=== PATIENT | female | born 1990 | race Caucasian/White ===

== ENCOUNTER → 2016-03-13 04:04 | Emergency (ER) | payer OTHER ==
[~2016-03-13 04:04] MED LIST: Ketorolac INJ* 60 MG/2 ML VIAL IM ONE; oxyCODONE/Acetamin 5/325 MG* TAB PO ONE
[2016-03-13 04:13] VITALS: BP 126/68
--- NOTE | 2016-03-13 04:55 | ED ---
Conrelius Glynn Anna, scribed for Rene Weems MD on 03/13/16 at 0413 . Throat Pain/Nasal Congestion - HPI Summary HPI Summary: Patient is a 25 y/o female coming to [facility] presenting with dental pain that began two months ago. She has an infection in her jaw from her wisdom teeth. The pain radiates to her ears and teeth. The pain is worse tonight. Denies fever. She has been taking amoxicillin for three rounds of treatment, the last two months. She is scheduled to return to her dentist on 04/05. She has tried Tylenol and ibuprofen, but it has not alleviated the pain. - History of Current Complaint Hx Obtained From: Patient - Allergies/Home Medications Allergies/Adverse Reactions: Allergies Allergy/AdvReac Type Severity Reaction Status Date / Time No Known Allergies Allergy Verified 04/16/15 18:19 PMH/Surg Hx/FS Hx/Imm Hx Previously Healthy: Yes Respiratory History: Reports: Hx Asthma - Immunization History Date of Tetanus Vaccine: UP TO DATE Date of Influenza Vaccine: NONE Infectious Disease History: Denies: Hx Clostridium Difficile, Hx Hepatitis, Hx Human Immunodeficiency Virus (HIV), Hx of Known/Suspected MRSA, Hx Shingles, Hx Tuberculosis, Hx Known/ Suspected VRE, Hx Known/Suspected VRSA, History Other Infectious Disease - Family History Known Family History: Negative: Cardiac Disease, Diabetes - Social History Lives: With Family Alcohol Use: None Substance Use Type: Reports: None Smoking Status (MU): Light Every Day Tobacco Smoker Type: Cigarettes Amount Used/How Often: 6cigs/day Have You Smoked in the Last Year: Yes Review of Systems Negative: Fever Positive: Dental Pain, Ear Ache Positive: Arthralgia - jaw All Other Systems Reviewed And Are Negative: Yes Physical Exam Triage Information Reviewed: Yes Vital Signs On Initial Exam: Initial Vitals Temp Pulse Resp BP Pulse Ox 98.9 F 75 12 126/68 100 03/13/16 04:09 03/13/16 04:09 03/13/16 04:09 03/13/16 04:09 03/13/16 04:09 Vital Signs Reviewed: Yes Appearance: Positive: Well-Appearing Skin: Positive: Warm Head/Face: Positive: Normal Head/Face Inspection Eyes: Positive: JUSTA Dental: Positive: Percussion Tenderness @ Neck: Positive: Supple Respiratory/Lung Sounds: Positive: Breath Sounds Present Musculoskeletal: Positive: Strength/ROM Intact Neurological: Positive: Sensory/Motor Intact, Alert, Oriented to Person Place, Time Psychiatric: Positive: Affect/Mood Appropriate Diagnostics - Vital Signs Vital Signs Temp Pulse Resp BP Pulse Ox 03/13/16 04:09 98.9 F 75 12 126/68 100 - Laboratory Lab Statement: Any lab studies that have been ordered have been reviewed, and results considered in the medical decision making process. Re-Evaluation - Re-Evaluation First Eval Re-Evaluation Time: 04:50 Change: Improved Comment: Patient's pain has alleviated somewhat following the Toradol and Percocet. Patient agrees with plan of care. EENT Course/Dx - Course Assessment/Plan: Patient is a 25 y/o female coming to [facility] presenting with dental pain that began two months ago. She has an infection in her jaw from her wisdom teeth. The pain radiates to her ears and teeth. The pain is worse tonight. Denies fever. Patient treated with Toradol and Percocet. Patient will be discharged to follow up with her dentist. Patient is agreeable with this plan. - Diagnoses Provider Diagnoses: Pain, dental Discharge - Discharge Plan Condition: Improved Disposition: HOME Patient Education Materials: Toothache (ED) Referrals: [facility] [Outside] Additional Instructions: Follow up with your dentist in 2-3 days. Return to ED for new or worsening symptoms. The documentation as recorded by the Cornelius tovar Anna accurately reflects the service I personally performed and the decisions made by me, Rene Weems MD.
== END | disposition home or self-care (01) ==
LOC: ED 04:04
DX: K08.89 Other specified disorders of teeth and supporting structures (principal); F17.210 Nicotine dependence, cigarettes, uncomplicated
CPT/HCPCS: 96372; 99282; A9270-GY; J1885

== ENCOUNTER 2016-03-16 12:41 | Emergency (ER) | payer OTHER ==
[2016-03-16 12:47] VITALS: BP 132/63
--- NOTE | 2016-03-16 13:21 | ED ---
Throat Pain/Nasal Congestion - HPI Summary HPI Summary: Patient presents with left upper tooth pain for 2 months. She is followed by her dentist and is on her third round of Amoxicillin. She has an appointment on Apr 05, 2016. She came to this ED two nights ago and was told to try to get an earlier appointment with her dentist. Her pain is now in her left ear and when turning her head to the right. She denies drainage, fevers or chills. - History of Current Complaint Chief Complaint: EDDentalPain Time Seen by Provider: 03/16/16 12:59 Hx Obtained From: Patient, Family/Pulverizing And Sifting Operator Onset/Duration: Gradual Onset Severity: Severe Associated Signs And Symptoms: Positive: Negative Cough: None - Epiglottits Risk Factors Epiglottis Risk Factors: Negative - Allergies/Home Medications Allergies/Adverse Reactions: Allergies Allergy/AdvReac Type Severity Reaction Status Date / Time No Known Allergies Allergy Verified 03/16/16 12:47 PMH/Surg Hx/FS Hx/Imm Hx Respiratory History: Reports: Hx Asthma - Immunization History Date of Tetanus Vaccine: UP TO DATE Date of Influenza Vaccine: NONE Infectious Disease History: No Infectious Disease History: Denies: Hx Clostridium Difficile, Hx Hepatitis, Hx Human Immunodeficiency Virus (HIV), Hx of Known/Suspected MRSA, Hx Shingles, Hx Tuberculosis, Hx Known/ Suspected VRE, Hx Known/Suspected VRSA, History Other Infectious Disease, Traveled Outside the in Last 30 Days - Family History Known Family History: Positive: None Negative: Cardiac Disease, Diabetes - Social History Occupation: Employed Full-time Lives: With Family Alcohol Use: None Substance Use Type: Reports: None Smoking Status (MU): Light Every Day Tobacco Smoker Type: Cigarettes Amount Used/How Often: 6cigs/day Have You Smoked in the Last Year: Yes Cessation Counseling: Patient Advised to Stop Review of Systems Negative: Fever, Chills Positive: Dental Pain, Ear Ache Negative: Headache All Other Systems Reviewed And Are Negative: Yes Physical Exam Triage Information Reviewed: Yes Vital Signs On Initial Exam: Initial Vitals Temp Pulse Resp BP Pulse Ox 97.8 F 81 14 132/63 100 03/16/16 12:42 03/16/16 12:42 03/16/16 12:42 03/16/16 12:42 03/16/16 12:42 Vital Signs Reviewed: Yes Appearance: Positive: Well-Appearing, Well-Nourished, Pain Distress Skin: Positive: Warm, Skin Color Reflects Adequate Perfusion, Dry, Soft Head/Face: Positive: Normal Head/Face Inspection Eyes: Positive: EOMI, JUSTA, Conjunctiva Clear ENT: Positive: Hearing grossly normal, Pharyngeal erythema, TMs normal, Dental tenderness - left upper molars and wisdom teeth. Negative: Tonsillar swelling Dental: Positive: Percussion Tenderness @, Cervical Lymphadenopathy - left cervical chain. Negative: Dental Fracture @ Neck: Positive: Supple, Tenderness @ - left cervical chain Respiratory/Lung Sounds: Positive: Clear to Auscultation, Breath Sounds Present Cardiovascular: Positive: RRR Musculoskeletal: Negative: Edema Left, Edema Right Neurological: Positive: Sensory/Motor Intact, Alert, Oriented to Person Place, Time, Normal Gait Psychiatric: Positive: Affect/Mood Appropriate AVPU Assessment: Alert Diagnostics - Vital Signs Vital Signs Temp Pulse Resp BP Pulse Ox 03/16/16 12:42 97.8 F 81 14 132/63 100 - Laboratory Result Diagrams: 03/16/16 13:37 Lab Statement: Any lab studies that have been ordered have been reviewed, and results considered in the medical decision making process. - CT No standard instances CT Interpretation: No Acute Changes CT Interpretation Completed By: Radiologist EENT Course/Dx - Course Course Of Treatment: Patient's CT was negative for abscess. She will be changed to clindamycin to see if this will have better coverage and follow-up with her dentist. - Differential Diagnoses Differential Diagnoses: Dental Abscess, Dental Caries, Fractured Tooth, Irineo' s Angina, Mastoiditis, Odontogenic Pain, Periodontic Abscess, Periodontic Disease, Post-Extraction Pain - Diagnoses Provider Diagnoses: Toothache Discharge - Discharge Plan Condition: Stable Disposition: HOME Prescriptions: Clindamycin Cap(NF) [Cleocin 300 mg Cap(NF)] 300 mg PO Q6H #39 cap Patient Education Materials: Toothache (ED) Additional Instructions: Please take the antibiotics as prescribed until they are completely gone. Use 600mg of ibuprofen three times daily with meals for the next 5-7 days to decrease pain and swelling. Follow-up with your dentist as scheduled. Return to the emergency department if your symptoms worsen.
[2016-03-16] MEDS ORDERED: Ketorolac INJ* 30 MG/ML 1 ML VIAL IV ONE (13:23)
[2016-03-16 14:01] LABS: ALT 19 U/L (7-52); AST 19 U/L (13-39); Alkaline Phosphatase 100 U/L (34-104); Anion Gap 3 mmol/L (2-11); BUN/Creatinine Ratio 15.5 (8-20); Blood Urea Nitrogen 13 mg/dL (6-24); C Reactive Protein < 1.00 mg/L (< 5.00); CO2 Carbon Dioxide 29 mmol/L (22-32); Chloride 104 mmol/L (101-111); EGFR African American 107.1 (>60); EGFR Non-African American 83.3 (>60); Globulin 2.9 g/dL (2-4); Glucose 92 mg/dL (70-100); Potassium 3.9 mmol/L (3.5-5.0); Sodium 136 mmol/L (133-145); Total Protein 7.9 g/dL (6.4-8.9)
[2016-03-16] MEDS ORDERED: Iohexol 300* (CONTRAST) 10 ML SDV IV ONE (14:33)
--- NOTE | 2016-03-16 15:16 | RAD ---
HISTORY: Left tooth pain, ear pain COMPARISONS: None relevant TECHNIQUE: Multiple contiguous axial CT scans were obtained of the neck after the administration of nonionic intravenous contrast, with coronal and sagittal multiplanar reformations. FINDINGS: The study is limited by patient motion artifact. BRAIN AND ORBITS: The visualized brain and orbits are normal. PARANASAL SINUSES: There is mucosal thickening of the left maxillary sinus. SALIVARY GLANDS: The parotid glands, submandibular glands, sublingual glands are normal. NASAL CAVITY/NASOPHARYNX: The nasal cavity and nasopharynx are normal. ORAL CAVITY/OROPHARYNX: The oral cavity is obscured by streak artifact from dental amalgam. The visualized oral cavity and oropharynx are unremarkable. LARYNGEAL APPARATUS/HYPOPHARYNX: The laryngeal apparatus and hypopharynx are normal. UPPER AIRWAY/UPPER ESOPHAGUS: The visualized upper airway and esophagus are normal. LUNG APICES: The lung apices are clear. THYROID GLAND: The thyroid gland is normal. LYMPH NODES: There is no lymphadenopathy by size criteria. VASCULATURE: The vasculature is unremarkable. BONES AND SOFT TISSUES: No bone or soft tissue abnormalities are noted. OTHER: None. IMPRESSION: LIMITED STUDY. UNREMARKABLE CT OF THE NECK, WITHOUT FREE OR LOCULATED FLUID COLLECTION OR INFLAMMATORY CHANGE
[2016-03-16] MEDS ORDERED: Clindamycin CAP* 150 MG PO ONE (15:19)
== END 2016-03-16 15:28 | disposition home or self-care (01) ==
LOC: ED 12:41
DX: K08.89 Other specified disorders of teeth and supporting structures (principal); F17.210 Nicotine dependence, cigarettes, uncomplicated
CPT/HCPCS: 36415; 70491; 80053; 86140; 96374; 99282; A9270-GY; J1885; Q9967

== ENCOUNTER 2016-03-31 04:12 | Emergency (ER) | payer OTHER ==
[2016-03-31 04:22] VITALS: BP 130/84
[2016-03-31] MEDS ORDERED: Amoxicillin PO (*) 250 MG CAP PO ONE (04:31)
[2016-03-31] MEDS ORDERED: oxyCODONE/Acetamin 5/325 MG* TAB PO ONE (04:31)
--- NOTE | 2016-03-31 06:26 | ED ---
Alberto Glynn Claudia, scribed for Macho Anne on 03/31/16 at 0429 . Throat Pain/Nasal Congestion - HPI Summary HPI Summary: 25 YEAR OLD FEMALE PRESENTS TO THE ED WITH DENTAL PAIN. PT NOTES SHE HAS BEEN HAVING THIS PAIN FOR MONTHS BUT IT HAS GOTTEN WORSE IN THE PAST FEW DAYS. PT IS SUPPOSE TO HAVE THE TOOTH REMOVED ON MONDAY BUT THE PAIN WORSENED SO MUCH TONIGHT SHE WAS UNABLE TO SLEEP. PT NOTES SHE HAS BEEN ON ANTIBIOTICS FOR WEEK WITH NO ALLEVIATION OF HER SX. - History of Current Complaint Chief Complaint: EDDentalPain Time Seen by Provider: 03/31/16 04:25 Hx Obtained From: Patient Onset/Duration: Gradual Onset, Lasting Weeks, Still Present, Worse Since - today - Allergies/Home Medications Allergies/Adverse Reactions: Allergies Allergy/AdvReac Type Severity Reaction Status Date / Time No Known Allergies Allergy Verified 03/16/16 12:47 PMH/Surg Hx/FS Hx/Imm Hx Previously Healthy: Yes Endocrine/Hematology History: Denies: Hx Diabetes Respiratory History: Reports: Hx Asthma - Immunization History Date of Tetanus Vaccine: UP TO DATE Date of Influenza Vaccine: NONE Infectious Disease History: No Infectious Disease History: Denies: Hx Clostridium Difficile, Hx Hepatitis, Hx Human Immunodeficiency Virus (HIV), Hx of Known/Suspected MRSA, Hx Shingles, Hx Tuberculosis, Hx Known/ Suspected VRE, Hx Known/Suspected VRSA, History Other Infectious Disease, Traveled Outside the [place] in Last 30 Days - Family History Known Family History: Positive: None Negative: Cardiac Disease, Diabetes - Social History Lives: With Family Alcohol Use: None Substance Use Type: Reports: None Smoking Status (MU): Light Every Day Tobacco Smoker Type: Cigarettes Amount Used/How Often: 6cigs/day Have You Smoked in the Last Year: Yes Review of Systems Constitutional: Negative Negative: Fever Eyes: Negative Positive: Dental Pain, Ear Ache - left sided Cardiovascular: Negative Respiratory: Negative Genitourinary: Negative Musculoskeletal: Negative Skin: Negative Neurological: Negative Psychological: Normal All Other Systems Reviewed And Are Negative: Yes Physical Exam Triage Information Reviewed: Yes Vital Signs On Initial Exam: Initial Vitals Temp Pulse Resp BP Pulse Ox 98.1 F 80 22 130/84 100 03/31/16 04:19 03/31/16 04:19 03/31/16 04:19 03/31/16 04:19 03/31/16 04:19 Vital Signs Reviewed: Yes Appearance: Positive: Well-Appearing, No Pain Distress Skin: Positive: Warm, Skin Color Reflects Adequate Perfusion, Dry Head/Face: Positive: Normal Head/Face Inspection Eyes: Positive: EOMI, JUSTA ENT: Positive: Other - TENDERNESS OVER TEETH 15,16,17,18 AND REDNESS OF THE EXTERNAL AUDIOTRY CANAL Neck: Positive: Supple, Nontender Respiratory/Lung Sounds: Positive: Clear to Auscultation, Breath Sounds Present Cardiovascular: Positive: RRR, Pulses are Symmetrical in both Upper and Lower Extremities Abdomen Description: Positive: Nontender, Soft Diagnostics - Vital Signs Vital Signs Temp Pulse Resp BP Pulse Ox 03/31/16 04:19 98.1 F 80 22 130/84 100 - Laboratory Lab Statement: Any lab studies that have been ordered have been reviewed, and results considered in the medical decision making process. EENT Course/Dx - Course Assessment/Plan: PT IT AGREEABLE WITH THE PLAN TO BE D/C HOME WITH ANTIBIOTICS AND PAIN RX UNTIL SHE IS [place] JESUS TO SEE THE DENTIST ON MONDAY FOR HER TOOTH EXTRACTION. - Diagnoses Provider Diagnoses: Tooth pain, Otitis media Discharge - Discharge Plan Condition: Stable Disposition: HOME Prescriptions: Amoxicillin CAP* 875 mg PO Q12H #20 cap oxyCODONE/Acetamin 5/325 MG* [Percocet 5/325 TAB*] 1 tab PO Q8H PRN #10 tab MDD 3 PRN Reason: Pain Patient Education Materials: Otitis Media (ED), Toothache (ED) Additional Instructions: FOLLOW UP WITH DENTIST. The documentation as recorded by the Alberto tovar Claudia accurately reflects the service I personally performed and the decisions made by Omid willis Emmanuel.
== END 2016-03-31 04:48 | disposition home or self-care (01) ==
LOC: ED 04:12
DX: K08.89 Other specified disorders of teeth and supporting structures (principal); H66.92 Otitis media, unspecified, left ear; F17.210 Nicotine dependence, cigarettes, uncomplicated
CPT/HCPCS: 99282; A9270-GY

== ENCOUNTER 2016-10-02 13:21 | Emergency (ER) | payer OTHER ==
[2016-10-02 13:32] VITALS: BP 131/69
[2016-10-02] MEDS ORDERED: Ibuprofen TAB* 600 MG PO ONE ×2 (14:14→14:23)
--- NOTE | 2016-10-02 14:17 | RAD ---
HISTORY: Right knee injury COMPARISONS: None VIEWS: 4, Frontal, lateral, axial, and oblique views of the right knee FINDINGS: BONE DENSITY: Normal. BONES: There is no displaced fracture. JOINTS: There is no arthropathy. ALIGNMENT: There is no dislocation. SOFT TISSUES: Unremarkable. OTHER FINDINGS: None. IMPRESSION: NO ACUTE OSSEOUS INJURY. IF SYMPTOMS PERSIST, RECOMMEND REPEAT IMAGING.
--- NOTE | 2016-10-02 14:25 | UC ---
Inocente Glynn Angela, scribed for Sterling Abebe MD on 10/02/16 at 1403 . Lower Extremity/Ankle HPI - HPI Summary HPI Summary: This pt is a 25 y/o female presenting to [facility] c/o right knee pain since yesterday. Pt reports she has an old knee injury to her right knee x10 years. She notes she was at the park with her kids yesterday and felt a pop on her right knee. Pt describes her pain as if her foot "was asleep" and the pain shoots down her leg. She rates her pain 7-8 out of 10 in severity. Her pain is aggravated by bending her right knee. Pt reports that if she bends her knee she feels unstable on her feet, but is able to wear weight. She took ibuprofen yesterday with no relief, last dose was yesterday. Pt states her knee is uncomfortable in the winter with the cold. She denies any other injuries to the knee, surgeries to her knee, ankle pain, foot pain, fever. - History of Current Complaint Chief Complaint: UCLowerExtremity Stated Complaint: KNEE INJURY Time Seen by Provider: 10/02/16 13:56 Hx Obtained From: Patient Hx Last Menstrual Period: 09/26/16 Onset/Duration: Gradual Onset Pain Intensity: 7 Pain Scale Used: 0-10 Numeric Aggravating Factor(s): Ambulation, Other - bending the knee Alleviating Factor(s): Nothing Able to Bear Weight: Yes Related History: Other - prior right knee injury 10 years ago - Allergies/Home Medications Allergies/Adverse Reactions: Allergies Allergy/AdvReac Type Severity Reaction Status Date / Time Aspirin Allergy Unknown Verified 10/02/16 13:33 Reaction Details PMH/Surg Hx/FS Hx/Imm Hx Other Endocrine History: DENIES: diabetes Other Cardiovascular History: DENIES: HTN Respiratory History: Asthma - Surgical History Surgical History: None - Family History Known Family History: Positive: None Negative: Cardiac Disease, Diabetes - Social History Alcohol Use: Rare Substance Use Type: None Smoking Status (MU): Light Every Day Tobacco Smoker Type: Cigarettes Amount Used/How Often: 6cigs/day Have You Smoked in the Last Year: Yes Household Exposure Type: Cigarettes Review of Systems Constitutional: Negative Skin: Negative Eyes: Negative ENT: Negative Respiratory: Negative Motor: Decreased ROM - of right knee, unable to bend knee secondary to pain Musculoskeletal: Other: - right knee pain Neurological: Negative All Other Systems Reviewed And Are Negative: Yes Physical Exam Triage Information Reviewed: Yes Vital Signs: Initial Vital Signs Temp 98.1 F 10/02/16 13:28 Pulse 107 10/02/16 13:28 Resp 18 10/02/16 13:28 BP 131/69 10/02/16 13:28 Pulse Ox 98 10/02/16 13:28 Vital Signs Reviewed: Yes - Additional Comments General: well-appearing, no pain distress Skin: warm, color reflects adequate perfusion, dry Head: normal Eyes: EOMI, JUSTA ENT: normal Neck: supple, nontender Respiratory: CTA, breath sounds present Cardiovascular: RRR Musculoskeletal: normal, strength/ROM intact. RLE: right knee has effusion. There is tenderness with movement of patella, palpation of the medial collateral ligaments, and palpation of the popliteal. Pt declines examination of laxity secondary to pain with flexion of the knee. Neurological: normal, sensory/motor intact, A&O x3 Psychological: affect/mood appropriate Diagnostics - Radiology Right Knee XR Xray Interpretation: No Acute Changes - IMPRESSION: No acute osseous injury. If symptoms persist, recommend repeat imaging. ED physician has reviewed this radiology report and agrees. Radiology Interpretation Completed By: Radiologist Lower Extremity Course/Dx - Course Course Of Treatment: This pt is a 25 y/o female presenting to [facility] c/o right knee pain since yesterday. Pt reports she has an old knee injury to her right knee x10 years. She notes she was at the park with her kids yesterday and felt a pop on her right knee. Pt describes her pain as if her foot "was asleep" and the pain shoots down her leg. She rates her pain 7-8 out of 10 in severity. Her pain is aggravated by bending her right knee. Pt reports that if she bends her knee she feels unstable on her feet, but is able to wear weight. She took ibuprofen yesterday with no relief, last dose was yesterday. Pt states her knee is uncomfortable in the winter with the cold. She denies any other injuries to the knee, surgeries to her knee, ankle pain, foot pain, fever. XR shows no acute osseous injury. If symptoms persist, recommend repeat imaging. ED physician has reviewed this radiology report and agrees.The right knee has effusion. On exam, there is tenderness with movement of the patella, palpation of the medial collateral ligaments, and palpation of the popliteal. Pt declines examination of laxity secondary to pain with flexion of the knee. Elevated BP noted and advised to follow up with PCP. Medications reviewed. KNEE IMMOBILIZER GIVEN. F/U WITH SPORTS MED. MEDICATIONS REVIEWED. - Differential Dx/Diagnosis Provider Diagnoses: SWOLLEN RIGHT KNEE INTERNAL DERANGEMENT Discharge - Discharge Plan Condition: Stable Disposition: HOME Prescriptions: HYDROcodone/ACETAMIN 5-325 MG* [[place] 5-325 TAB*] 1 tab PO Q4H PRN #20 tab MDD 6 PRN Reason: Pain Patient Education Materials: Swollen Knee Joint (ED), Knee Immobilizer (ED) Referrals: [facility] [Outside] Additional Instructions: FOLLOW UP WITH YOUR DOCTOR. GET RECHECKED FOR ANY WORSENING OF YOUR CONDITION OR QUESTIONS OR CONCERNS. The documentation as recorded by the Inocente tovar Angela accurately reflects the service I personally performed and the decisions made by me, Sterling Abebe MD.
== END 2016-10-02 14:33 | disposition home or self-care (01) ==
LOC: UCEAST 13:21
DX: M23.92 Unspecified internal derangement of left knee (principal); J45.909 Unspecified asthma, uncomplicated; Z88.6 Allergy status to analgesic agent; F17.210 Nicotine dependence, cigarettes, uncomplicated
CPT/HCPCS: 99213; A9270-GY; G0463

== ENCOUNTER 2017-02-28 21:20 | Emergency (ER) | payer OTHER ==
--- NOTE | 2017-03-01 00:06 | ED ---
GI/ HPI - HPI Summary HPI Summary: 26 female presents to ED with complaints of right flank pain, dysuria, feeling like she is not finished urinating (difficulty), and white colored discharge that has been ongoing for the past week. Patient states her R sided flank pain began yesterday and worsened today. Denies abdominal pain and radiation of pain. No nausea, vomiting or fever/chills. Denies any other symptoms. No PMHx. Has nexplonon. No other medications. Nothing makes pain better, urination makes symptoms worse. No concern for STDs, patient is sexually active with fiance. Admits to some dyspareunia that has been ongoing intermittently for years. - History of Current Complaint Chief Complaint: EDFlankPain Time Seen by Provider: 03/01/17 00:05 Stated Complaint: RT FLANK PAIN,DIFFICULTY URINATING Hx Obtained From: Patient Hx Last Menstrual Period: 09/26/16 Onset/Duration: Started Days Ago, Still Present, Worse Since Timing: Constant Severity: Moderate Current Severity: Moderate Pain Intensity: 5 Location of Pain: Flank - right Pain Characteristics: Sharp, Dull, Aching Associated Signs and Symptoms: Positive: Dysuria, Flank Pain - r, UTI Symptoms Additional Signs & Symptoms: Positive: Vaginal Discharge - white in color, Oral Contraceptives Compliant - nexplonon Aggravating Factor(s): Urination Alleviating Factor(s): Nothing - Allergy/Home Medications Allergies/Adverse Reactions: Allergies Allergy/AdvReac Type Severity Reaction Status Date / Time Aspirin Allergy Unknown Verified 10/02/16 13:33 Reaction Details PMH/Surg Hx/FS Hx/Imm Hx Endocrine/Hematology History: Denies: Hx Diabetes Respiratory History: Reports: Hx Asthma - Surgical History Surgery Procedure, Year, and Place: none - Immunization History Date of Tetanus Vaccine: UP TO DATE Date of Influenza Vaccine: NONE Immunizations Up to Date: Yes Infectious Disease History: No Infectious Disease History: Denies: Hx Clostridium Difficile, Hx Hepatitis, Hx Human Immunodeficiency Virus (HIV), Hx of Known/Suspected MRSA, Hx Shingles, Hx Tuberculosis, Hx Known/ Suspected VRE, Hx Known/Suspected VRSA, History Other Infectious Disease, Traveled Outside the [place] in Last 30 Days - Family History Known Family History: Positive: None Negative: Cardiac Disease, Diabetes - Social History Alcohol Use: Rare Substance Use Type: Reports: None Smoking Status (MU): Light Every Day Tobacco Smoker Type: Cigarettes Amount Used/How Often: 6cigs/day Have You Smoked in the Last Year: Yes Review of Systems Constitutional: Negative Cardiovascular: Negative Respiratory: Negative Gastrointestinal: Negative Positive: see HPI, burning, dysuria, discharge, flank pain - r Neurological: Negative All Other Systems Reviewed And Are Negative: Yes Physical Exam Triage Information Reviewed: Yes Vital Signs On Initial Exam: Initial Vitals Temp Pulse Resp BP Pulse Ox 98.2 F 83 16 134/75 98 02/28/17 21:24 02/28/17 21:24 02/28/17 21:24 02/28/17 21:24 02/28/17 21:24 Vital Signs Reviewed: Yes Appearance: Positive: Well-Appearing, No Pain Distress, Well-Nourished Skin: Positive: Warm, Skin Color Reflects Adequate Perfusion, Dry. Negative: Cold, Numb, Cyanosis @, Pale, Erythema @ Head/Face: Positive: Normal Head/Face Inspection ENT: Positive: Pharynx normal Neck: Positive: Supple, Nontender Respiratory/Lung Sounds: Positive: Clear to Auscultation, Breath Sounds Present. Negative: Rales, Rhonchi, Wheezes Cardiovascular: Positive: Normal, RRR, Pulses are Symmetrical in both Upper and Lower Extremities. Negative: Murmur, Rub Abdomen Description: Positive: Nontender, No Organomegaly, Soft, CVA Tenderness (R) - some tenderness on abdomen mid right side. Negative: Bruit, CVA Tenderness (L), Distended, Guarding, McBurney's Point Tenderness Bowel Sounds: Positive: Present Musculoskeletal: Positive: Normal, Strength/ROM Intact Neurological: Positive: Normal, Sensory/Motor Intact, Alert, Oriented to Person Place, Time Diagnostics - Vital Signs Vital Signs Temp Pulse Resp BP Pulse Ox 02/28/17 23:41 97.8 F 71 20 114/61 100 02/28/17 21:24 98.2 F 83 16 134/75 98 - Laboratory Result Diagrams: 03/01/17 00:53 03/01/17 00:53 Lab Statement: Any lab studies that have been ordered have been reviewed, and results considered in the medical decision making process. - CT abd/pelvis CT Interpretation: No Acute Changes - no definite acute pathology, moderate diffuse solid stool, no renal calculi or hydronephrosis CT Interpretation Completed By: Radiologist - and myself Re-Evaluation - Re-Evaluation First Eval Re-Evaluation Time: 01:34 Change: Improved - had significant relief from toradol GIGU Course/Dx - Course Course Of Treatment: given pain medication. urine, labs, vaginal cultures and Ct abd/pelvis obtained. normal vitals and PE other than R CVA tenderness and described pelvic exam as noted above. had relief from toradol. labs and urine completely negative. ct negative. pelvic exam revealed findings of BV. will treat with flagyl. possible candidiasis infection as well, will treat with one time dose of diflucan. continue falgyl and ibuprofen at home. pending vaginal culture results will alter treatment if results alex necessary. patient denied STD concerns/hx. no other concerns at this time. follow up with pcp/obgyn. aware of worsening signs and symptoms to watch out for. refrain from sexual intercourse until treatment is complete and culture results obtained. continue ibuprofen for pain and heating pad. - Diagnoses Differential Diagnoses - Female: Candidiasis, STD, Vaginitis Provider Diagnoses: Bacterial vaginosis, Vaginal discharge, Vaginal candidiasis Discharge - Discharge Plan Condition: Stable Disposition: HOME Prescriptions: Metronidazole [Flagyl 500 MG TAB] 500 mg PO BID #13 tab Patient Education Materials: Bacterial Vaginosis (ED), Yeast Infection (ED) Referrals: Michel Deutsch MD [Primary Care Provider] - Additional Instructions: Take prescribed medication as directed. Ibuprofen for pain and discomfort. Increase fluid intake. Apply heating pad to any pain/discomfort as this may help soothe. Refrain from sexual intercourse until symptoms improve and treatment is finished. You will hear about culture results once received in a few days if positive or if additional treatment is required. Follow up with OBGYN, PCP. Any new or worsening symptoms or symptoms persist please seek medical attention promptly, as discussed.
[2017-03-01] MEDS ORDERED: Ketorolac INJ* 30 MG/ML 1 ML VIAL IV PUSH ONE (00:57)
[2017-03-01 01:04] LABS: ABS Basophils 0 10^3/ul (0-0.2); ABS Eosinophils 0.1 10^3/ul (0-0.6); ABS Lymphocytes 1.8 10^3/ul (1.0-4.8); ABS Monocytes 0.2 10^3/ul (0-0.8); ABS Neutrophils 4.2 10^3/ul (1.5-7.7); ABS Nucleated RBC 0 10^3/ul; Eosinophil % 1.9 % (0-6); Hematocrit 42 % (35-47); Hemoglobin 14.2 g/dl (12.0-16.0); Lymphocyte % 28.3 % (25-47); Mean Corpuscular HGB Conc 34 g/dl (31-36); Mean Corpuscular Hemoglobin 30 pg (27-31); Mean Corpuscular Volume 88 fL (80-97); Mean Platelet Volume 10 um3 (7.4-10.4); Nucleated Red Blood Cells % 0.1; Platelet Count 168 10^3/ul (150-450); Red Blood Count 4.76 10^6/ul (4.0-5.4); Red Cell Distribution Width 13 % (10.5-15); White Blood Count 6.4 10^3/ul (3.5-10.8)
[2017-03-01 01:05] LABS: Urine Appearance Clear; Urine Blood Negative (Negative); Urine Color Yellow; Urine Ketones Negative (Negative); Urine Protein Negative (Negative); Urine Specific Gravity 1.027 (1.010-1.030); Urine Urobilinogen Negative (Negative)
[2017-03-01 01:17] LABS: EGFR Non-African American 95.6 (>60)
[2017-03-01] MEDS ORDERED: metroNIDAZOLE TAB* 250 MG PO ONE (01:33)
[2017-03-01] MEDS ORDERED: Fluconazole 100 MG TAB* TAB PO ONE (01:33)
[2017-03-01 03:06] VITALS: BP 106/57
--- NOTE | 2017-03-01 07:44 | RAD ---
INDICATION: Right flank abdominal pain. COMPARISON: Comparison is made with a prior CT of the abdomen and pelvis from April 29, 2009. TECHNIQUE: A CT scan of the abdomen and pelvis was performed without intravenous or oral contrast. Contiguous axial sections were obtained from the lung bases through the symphysis pubis. Images were reconstructed in the coronal and sagittal planes. FINDINGS: The lung bases are clear. No pleural effusion is present. The liver and spleen are normal in size without significant focal abnormality on this noncontrast study. The gallbladder is not well visualized and likely contracted. The pancreas appears to be within normal limits. The adrenal glands and kidneys are normal in size. No renal calculi or hydronephrosis is seen. No ureteral or bladder calculi are seen. The aorta is normal in caliber without significant calcific plaque. No significant enlarged retroperitoneal lymph nodes are seen. There is food debris within the stomach which is moderately distended. The small bowel colon appear nondistended. The appendix is not well visualized. There is mild descending and sigmoid diverticulosis without evidence for diverticulitis. There is a moderate amount retained stool. The uterus is anteverted and normal in size. No free intraperitoneal air or fluid is seen. There is a mild lumbar scoliosis convex toward the left side. No significant focal osseous abnormality is seen. IMPRESSION: NO EVIDENCE FOR ACUTE FINDING OR CAUSE FOR THE PATIENT'S ABDOMINAL PAIN IS SEEN.
== END 2017-03-01 03:05 | disposition home or self-care (01) ==
LOC: ED 21:20
DX: N76.0 Acute vaginitis (principal); B37.3 Candidiasis of vulva and vagina
CPT/HCPCS: 36415; 74176; 80053; 81003; 83605; 84702; 85025; 87480; 87491; 87510; 87591; 87661; 96374; 99283; A9270-GY; J1885

== ENCOUNTER 2017-04-01 03:34 | Emergency (ER) | payer OTHER ==
[2017-04-01 04:35] VITALS: BP 0/0
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
== END 2017-04-01 04:33 | disposition home or self-care (01) ==
LOC: ED 03:34
DX: F10.129 Alcohol abuse with intoxication, unspecified (principal); J45.909 Unspecified asthma, uncomplicated; F17.210 Nicotine dependence, cigarettes, uncomplicated
CPT/HCPCS: 99281

== ENCOUNTER 2017-11-28 08:36 | Emergency (ER) | payer OTHER ==
--- NOTE | 2017-11-28 09:48 | ED ---
Influenza-Like Illness - HPI Summary HPI Summary: Pt presents w/ flu-like sx x [address] and dry cough - progressed to "spine pain/weakness" which she reports feels like a "sponge" from her neck through thoracic and down to her lower back. She reports pain and weakness into her Lt UE today but no sx into Rt arm nor LE's. Lt UE is worse w/ movement and touch and she reports "numbness" but is able to feel gross touch. She denies fever but has had chills. Denies nausea, vomiting, ab pain but has had reduced appetite and drinking water only. Has had diarrhea since illness started. Denies SCHULTZ, neck stiffness, photophobia, change in vision, rash, chest pain, SOB , urinary sx. No h/o back issues and no activities to illicit this pain. No new meds/vaccines. 1 of her children is in school - no recent illness or sick contacts. Has tried ibuprofen and acetaminophen w/o relief. NOTE: h/o tick bite w/ EM rash at 13 y.o. - tx'd w/ anbx and no further issues since. May still be exposed to ticks but no recent rash or witnessed bites. - History of Current Complaint Chief Complaint: EDGeneral Time Seen by Provider: 11/28/17 09:10 Hx Obtained From: Patient, Family/Dye Reel Operator - mom - Allergy/Home Medications Allergies/Adverse Reactions: Allergies Allergy/AdvReac Type Severity Reaction Status Date / Time MS Aspirin [Aspirin] Allergy Unknown Verified 11/28/17 08:53 Reaction Details Home Medications: Home Medications NK [No Home Medications Reported] 11/28/17 [History Confirmed 11/28/17] PMH/Surg Hx/FS Hx/Imm Hx Previously Healthy: Yes Endocrine/Hematology History: Reports: Hx Anemia - during - resolved Denies: Hx Diabetes, Hx Thyroid Disease, Autoimmune Disease Cardiovascular History: Denies: Hx Congenital Heart Disease, Hx Hypercholesterolemia, Hx Hypotension , Hx Hypertension, Hx Myocardial Infarction, Hx Rheumatic Fever Respiratory History: Reports: Hx Asthma - controlled Denies: Hx Pneumonia GI History: Denies: Hx Gastroesophageal Reflux Disease, Hx Irritable Bowel Musculoskeletal History: Reports: Hx Scoliosis - thoracic spine Denies: Hx Arthritis, Hx Back Problems, Hx Orthopedic Injury Sensory History: Reports: Hx Contacts or Glasses Opthamlomology History: Reports: Hx Contacts or Glasses Neurological History: Denies: Hx Headaches, Hx Peripheral Neuropathy - Surgical History Surgery Procedure, Year, and Place: none - Immunization History Date of Tetanus Vaccine: UP TO DATE Date of Influenza Vaccine: NONE Immunizations Up to Date: Yes Infectious Disease History: No Infectious Disease History: Denies: Hx Clostridium Difficile, Hx Hepatitis, Hx Human Immunodeficiency Virus (HIV), Hx of Known/Suspected MRSA, Hx Shingles, Hx Tuberculosis, Hx Known/ Suspected VRE, Hx Known/Suspected VRSA, History Other Infectious Disease, Traveled Outside the [place] in Last 30 Days - Family History Known Family History: Positive: None Negative: Cardiac Disease, Diabetes - Social History Occupation: Unemployed - homemaker Lives: With Family - fiance, 2 kids Alcohol Use: Occasionally Alcohol Amount: "for special occasions" Hx Substance Use: No Substance Use Type: Reports: None Hx Tobacco Use: Yes Smoking Status (MU): Current Every Day Smoker Type: Cigarettes Amount Used/How Often: 1/2 PPD Have You Smoked in the Last Year: Yes Review of Systems Positive: Chills, Fatigue. Negative: Fever Eyes: Negative Negative: Photophobia, Blurred Vision, Diplopia, Drainage, Erythema Cardiovascular: Negative Negative: Palpitations, Chest Pain Respiratory: Negative Positive: Cough - resolving. Negative: Shortness Of Breath Positive: Diarrhea. Negative: Abdominal Pain, Vomiting, Nausea Positive: no symptoms reported Positive: Arthralgia, Myalgia. Negative: Decreased ROM, Edema Skin: Negative Positive: Paresthesia. Negative: Headache, Weakness, Numbness, Syncope, Slurred Speech Psychological: Normal All Other Systems Reviewed And Are Negative: Yes Physical Exam Triage Information Reviewed: Yes Vital Signs On Initial Exam: Initial Vitals Temp Pulse Resp BP Pulse Ox 98.5 F 66 20 120/73 98 11/28/17 08:49 11/28/17 08:49 11/28/17 08:49 11/28/17 08:49 11/28/17 08:49 Vital Signs Reviewed: Yes Appearance: Positive: Well-Nourished Skin: Positive: Warm, Skin Color Reflects Adequate Perfusion, Dry - no rash Head/Face: Positive: Normal Head/Face Inspection Eyes: Positive: Normal, EOMI, JUSTA - no photophobia, Conjunctiva Clear. Negative: Conjunctiva Inflammed, Discharge ENT: Positive: Normal ENT inspection, Hearing grossly normal, Pharynx normal, Nasal congestion - mild, TMs normal, Uvula midline. Negative: Tonsillar swelling, Tonsillar exudate, Trismus, Muffled voice, Hoarse voice, Sinus tenderness Neck: Positive: Supple, Tenderness @, Enlarged Nodes @ - deep cc LN's are full and TTP Respiratory/Lung Sounds: Positive: Clear to Auscultation, Breath Sounds Present. Negative: Rales, Rhonchi, Wheezes Cardiovascular: Positive: Normal, RRR, S1, S2. Negative: Murmur, Rub, Leg Edema Left, Leg Edema Right Abdomen Description: Positive: Nontender, No Organomegaly, Soft Bowel Sounds: Positive: Present Musculoskeletal: Positive: Strength/ROM Intact, Pain @ - spinous pp and paraspinal mm are TTP from cervical spine, through thoracic spine and down to lumbar spine - everything is TTP - no gross deformity, no hyeprtonicity noted; no cervical rigidity; she is able to transition from sitting upright to lying and back again w/o weakness (lumbar flexion and eccentric contractions); FROM cervical spine and UE's but does have Lt arm weakness which appears to be 2ndry to pain - no crepitus, no edema of shoulder, elbow, wrist or hands but reports pain within her elbow here Neurological: Positive: Normal, Sensory/Motor Intact, Alert, Oriented to Person Place, Time, CN Intact II-III, Reflexes Intact, Facial Symmetry, Speech Normal Psychiatric: Positive: Anxious - tearful at times, concerned but calm Diagnostics - Vital Signs Vital Signs Temp Pulse Resp BP Pulse Ox 11/28/17 08:49 98.5 F 66 20 120/73 98 - Laboratory Result Diagrams: 11/28/17 10:05 11/28/17 10:05 Lab Statement: Any lab studies that have been ordered have been reviewed, and results considered in the medical decision making process. - Radiology cxr Xray Interpretation: No Acute Changes - baseline scoliosis Radiology Interpretation Completed By: ED Physician, Radiologist Re-Evaluation - Re-Evaluation First Eval Change: Improved - back pain improved w/ IV fluids alone - still has neck and Lt arm pain - will get ECG to r/o cardiac pathology (low suspicion) and order toradol for pain control Second Eval Change: Improved - neck and arm pain improved s/p toradol - reports she's hungry and would like to eat Flu Symptom Course/Dx - Diagnoses Provider Diagnoses: Viral syndrome Discharge - Sign-Out/Discharge Documenting (check all that apply): Patient Departure - Discharge Plan Condition: Stable Disposition: HOME Patient Education Materials: Viral Syndrome (ED) Referrals: Michel Deutsch MD [Primary Care Provider] - Additional Instructions: The definitive cause of your symptoms today was not identified however strep throat, influenza and pneumonia were ruled out as well as meningitis. You appear to have a viral syndrome however which can cause upper respiratory symptoms as well as body aches. It is important that she stay hydrated, stay well-nourished with soft foods and/or soups to keep your body healthy- you may advance your diet as tolerated. Is also important to follow-up with Dr. Deutsch later this week to investigate the drop in your white blood cell count. This may be from a viral syndrome however if symptoms persist or worsen, further investigation may be warranted. Call today to schedule your appointment for the end of the week. *If symptoms worsen, return to the emergency department. - Billing Disposition and Condition Condition: STABLE Disposition: Home
[2017-11-28] MEDS ORDERED: NS 0.9% 1000 ML* 1,000 ML IV ONE (09:58)
[2017-11-28 10:18] LABS: ABS Basophils 0 10^3/ul (0-0.2); ABS Eosinophils 0.1 10^3/ul (0-0.6); ABS Monocytes 0.2 10^3/ul (0-0.8); ABS Neutrophils 1.1 10^3/ul (1.5-7.7); ABS Nucleated RBC 0 10^3/ul; Eosinophil % 2.6 % (0-6); Hematocrit 42 % (35-47); Hemoglobin 14.3 g/dl (12.0-16.0); Lymphocyte % 41.9 % (25-47); Mean Corpuscular HGB Conc 34 g/dl (31-36); Mean Corpuscular Hemoglobin 30 pg (27-31); Mean Corpuscular Volume 88 fL (80-97); Mean Platelet Volume 9.3 um3 (7.4-10.4); Nucleated Red Blood Cells % 0; Platelet Count 161 10^3/ul (150-450); Red Blood Count 4.74 10^6/ul (4.00-5.40); Red Cell Distribution Width 13 % (10.5-15); White Blood Count 2.3 10^3/ul (3.5-10.8)
--- NOTE | 2017-11-28 10:47 | RAD ---
INDICATION: Cough and back pain COMPARISON: Most recent comparison chest x-rays dated May 05, 2014 TECHNIQUE: PA and lateral views of the chest were obtained. FINDINGS: The heart and mediastinum are normal in size and contour. The lungs are grossly clear. There is no evidence of large pleural effusion. Dextroconvex curvature of the thoracic spine measures approximately 27 degrees with the apex at T5/T6. There is no radiographic evidence of free air beneath the diaphragm IMPRESSION: 1. No radiographic evidence of acute cardiopulmonary disease. 2. Dextroconvex thoracic scoliosis is similar to the April 25, 2014 chest x-ray.
[2017-11-28] MEDS ORDERED: Ketorolac INJ* 30 MG/ML 1 ML VIAL IV PUSH ONE (11:05)
[2017-11-28 12:13] LABS: Urine Appearance Cloudy; Urine Blood Negative (Negative); Urine Color Yellow; Urine Ketones Negative (Negative); Urine Protein 1+(30 mg/dL) (Negative); Urine Red Blood Cell Absent (Absent); Urine Specific Gravity 1.024 (1.010-1.030); Urine Urobilinogen Negative (Negative); Urine White Blood Cell Absent (Absent)
--- NOTE | 2017-11-28 12:33 | ED ---
Progress - Progress Note Progress Note: Patient is a 27 y/o F w/ c/o neck pain and LUE onsetting four days ago. VANESSA Nguyen asked that patient be evaluated by Dr. Quezada. In the room, patient states that she is feeling better after treatment given by VANESSA Nguyen. She notes that she has had a sore throat and dry cough as well. Chest pain, fevers, diaphoresis is denied. Some chills are noted. On physical exam, patient is noted to have no nuchal rigidity, normal oropharynx, and is non-toxic in appearance. Patient was informed of her low WBC, she will be discharged to home and is advised to follow up with PCP. Patient is agreeable with this plan. Re-Evaluation - Re-Evaluation First Eval Change: Improved - back pain improved w/ IV fluids alone - still has neck and Lt arm pain - will get ECG to r/o cardiac pathology (low suspicion) and order toradol for pain control Course/Dx - Course Course Of Treatment: Patient is a 27 y/o F w/ c/o neck pain and LUE onsetting four days ago. VANESSA Nguyen asked that patient be evaluated by Dr. Quezada. In the room, patient states that she is feeling better after treatment given by VANESSA Nguyen. She notes that she has had a sore throat and dry cough as well. Chest pain, fevers, diaphoresis is denied. Some chills are noted. On physical exam, patient is noted to have no nuchal rigidity, normal oropharynx, and is non- toxic in appearance. Patient was informed of her low WBC, she will be discharged to home and is advised to follow up with PCP. Patient is agreeable with this plan. - Diagnoses Provider Diagnoses: Viral syndrome Discharge - Sign-Out/Discharge Documenting (check all that apply): Patient Departure - discharge - Discharge Plan Condition: Stable Disposition: HOME Patient Education Materials: Viral Syndrome (ED) Referrals: Michel Deutsch MD [Primary Care Provider] - Additional Instructions: The definitive cause of your symptoms today was not identified however strep throat, influenza and pneumonia were ruled out as well as meningitis. You appear to have a viral syndrome however which can cause upper respiratory symptoms as well as body aches. It is important that she stay hydrated, stay well-nourished with soft foods and/or soups to keep your body healthy- you may advance your diet as tolerated. Is also important to follow-up with Dr. Deutsch later this week to investigate the drop in your white blood cell count. This may be from a viral syndrome however if symptoms persist or worsen, further investigation may be warranted. Call today to schedule your appointment for the end of the week. *If symptoms worsen, return to the emergency department. - Attestation Statements Document Initiated by Scribe: Yes Documenting Scribe: Cruz Jackson Provider For Whom Scribe is Documenting (Include Credential): Hiro Quezada MD Scribe Attestation: ICruz , scribed for Hiro Quezada MD on 11/28/17 at 1255.
[2017-11-28 13:56] VITALS: BP 123/63
== END 2017-11-28 12:52 | disposition home or self-care (01) ==
LOC: ED 08:36
DX: B34.9 Viral infection, unspecified (principal); R00.1 Bradycardia, unspecified; Z88.6 Allergy status to analgesic agent; F17.210 Nicotine dependence, cigarettes, uncomplicated
CPT/HCPCS: 36415; 71046; 80053; 81003; 81015; 83605; 83735; 84443; 84702; 85025; 86308; 86618; 87651; 93005; 96374; 99282; J1885

== ENCOUNTER 2017-12-14 23:38 | Emergency (ER) | payer OTHER ==
[2017-12-15] MEDS ORDERED: Ketorolac INJ* 60 MG/2 ML VIAL IM ONE (00:14)
--- NOTE | 2017-12-15 00:16 | ED ---
Adult Trauma - HPI Summary HPI Summary: This pt is a 27 y/o female presenting to [facility] c/o back pain s/p fall about 45 minutes ago. Pt reports she was drinking alcohol at home and became drunk. She states she was having trouble breathing, went outside and fell in her driveway at approximately 23:30 on 12/14/17. Pt notes her friend told her she syncopized. Pt does not remember her fall and does not know how she landed after she fell. Denies headache, chest pain, SOB, fever, chills, urinary or bowel incontinence, weakness, numbness, or tingling in LE. PMHx: scoliosis. Pt does not take any daily medications. LMP: irregular periods. Pt is sexually active but has control implant in arm. - History of Current Complaint Chief Complaint: EDBackInjuryPain Stated Complaint: DIFF BREATHING/SYNCOPE Time Seen by Provider: 12/15/17 00:01 Hx Obtained From: Patient Hx Last Menstrual Period: 09/26/16 Mechanism of Injury: Fall Ambulatory at the Scene: Yes Restraints: None Onset/Duration: Started Minutes Ago, Still Present Onset of Pain: Minutes Current Severity: Severe Pain Intensity: 7 Pain Scale Used: 0-10 Numeric Location: Back Aggravating Factor(s): Movement Alleviating Factor(s): Rest Associated Signs & Symptoms: Positive: Loss of Consciousness. Negative: SOB, Chest Pain, Fever, Numbness/Weakness, Other: - urinary or bowel incontinence, tingling in LE, headache - Allergy/Home Medications Allergies/Adverse Reactions: Allergies Allergy/AdvReac Type Severity Reaction Status Date / Time aspirin Allergy Unkown Verified 12/15/17 00:12 PMH/Surg Hx/FS Hx/Imm Hx Endocrine/Hematology History: Reports: Hx Anemia - during - resolved Denies: Hx Diabetes, Hx Thyroid Disease Cardiovascular History: Denies: Hx Congenital Heart Disease, Hx Hypercholesterolemia, Hx Hypotension , Hx Hypertension, Hx Myocardial Infarction, Hx Rheumatic Fever Respiratory History: Reports: Hx Asthma - controlled Denies: Hx Pneumonia GI History: Denies: Hx Gastroesophageal Reflux Disease, Hx Irritable Bowel Musculoskeletal History: Reports: Hx Scoliosis - thoracic spine Denies: Hx Arthritis, Hx Back Problems, Hx Orthopedic Injury Sensory History: Reports: Hx Contacts or Glasses Opthamlomology History: Reports: Hx Contacts or Glasses Neurological History: Denies: Hx Headaches, Hx Peripheral Neuropathy - Surgical History Surgery Procedure, Year, and Place: none - Immunization History Date of Tetanus Vaccine: UP TO DATE Date of Influenza Vaccine: NONE Infectious Disease History: No Infectious Disease History: Denies: Hx Clostridium Difficile, Hx Hepatitis, Hx Human Immunodeficiency Virus (HIV), Hx of Known/Suspected MRSA, Hx Shingles, Hx Tuberculosis, Hx Known/ Suspected VRE, Hx Known/Suspected VRSA, History Other Infectious Disease, Traveled Outside the [place] in Last 30 Days - Family History Known Family History: Negative: Cardiac Disease, Diabetes - Social History Alcohol Use: Occasionally Alcohol Amount: "for special occasions" Hx Substance Use: No Substance Use Type: Reports: None Hx Tobacco Use: Yes Smoking Status (MU): Current Every Day Smoker Type: Cigarettes Amount Used/How Often: 1/2 PPD Have You Smoked in the Last Year: Yes Review of Systems Negative: Fever, Chills Negative: Chest Pain Negative: Shortness Of Breath Negative: incontinence - urinary or bowel Musculoskeletal: Other - POSITIVE: back pain Positive: Syncope. Negative: Headache All Other Systems Reviewed And Are Negative: Yes Physical Exam - Summary Physical Exam Summary: VITAL SIGNS: Reviewed. GENERAL: Patient is a well-developed and nourished female. Patient is not in any acute respiratory distress. HEAD AND FACE: No signs of trauma. No ecchymosis, hematomas or skull depressions. No sinus tenderness. EYES: PERRLA, EOMI x 2, No injected conjunctiva, no nystagmus. EARS: Hearing grossly intact. Ear canals and tympanic membranes are within normal limits. MOUTH: Oropharynx within normal limits. NECK: Supple, trachea is midline, no adenopathy, no JVD, no carotid bruit, no c- spine tenderness, neck with full ROM. CHEST: Symmetric, no tenderness at palpation LUNGS: Clear to auscultation bilaterally. No wheezing or crackles. CVS: Regular rate and rhythm, S1 and S2 present, no murmurs or gallops appreciated. ABDOMEN: Soft, non-tender. No signs of distention. No rebound no guarding, and no masses palpated. Bowel sounds are normal. MSK: FROM in all major joints, no edema, no cyanosis or clubbing. Tenderness over the thoracolumbar spine. Bilateral straight leg raise at 45 degrees bilaterally. NEURO: Alert and oriented x 3. No acute neurological deficits. Speech is normal and follows commands. SKIN: Dry and warm Triage Information Reviewed: Yes Vital Signs On Initial Exam: Initial Vitals Temp Pulse Resp BP Pulse Ox 97.6 F 98 20 144/77 100 12/14/17 23:38 12/14/17 23:38 12/14/17 23:38 12/14/17 23:38 12/14/17 23:38 Vital Signs Reviewed: Yes Diagnostics - Vital Signs Vital Signs Temp Pulse Resp BP Pulse Ox 12/14/17 23:38 97.6 F 98 20 144/77 100 - Laboratory Lab Statement: Any lab studies that have been ordered have been reviewed, and results considered in the medical decision making process. - CT Lumbar spine CT CT Interpretation Completed By: Radiologist Summary of CT Findings: IMPRESSION: No acute findings. Dr. Covarrubias has reviewed this report. Thoracic spine CT CT Interpretation Completed By: Radiologist Summary of CT Findings: IMPRESSION: No evidence of an acute fracture involving the thoracic vertebral bodies or posterior elements. Thoracic dextroscoliosis. Dr. Covarrubias has reviewed this report. Re-Evaluation - Re-Evaluation First Eval Re-Evaluation Time: 02:06 Comment: I reviewed the CT results with the pt. She will be discharged home. Pt understands and agrees. Adult Trauma Course/Dx - Course Assessment/Plan: Pt is a 27 y/o female who presents to the ED for back pain s/p fall about 45 minutes ago. Pt reports she was drinking alcohol at home and became drunk. She states she was having trouble breathing, went outside and fell in her driveway at approximately 23:30 on 12/14/17. Pt notes her friend told her she syncopized. Pt does not remember her fall and does not know how she landed after she fell. Denies headache, chest pain, SOB, fever, chills, urinary or bowel incontinence, weakness, numbness, or tingling in LE. Lumbar spine CT is negative. Thoracic spine CT shows no evidence of an acute fracture involving the thoracic vertebral bodies or posterior elements. Thoracic dextroscoliosis. In the ED course the pt was given Toradol. Pt will be discharged home with follow up from her PCP. She was given a prescription for Flexeril and Motrin. Pt was instructed to return to the ED for any worsening or new symptoms. - Diagnoses Provider Diagnoses: Back pain Discharge - Sign-Out/Discharge Documenting (check all that apply): Patient Departure - discharge home - Discharge Plan Condition: Stable Disposition: HOME Prescriptions: Cyclobenzaprine TAB* [Flexeril 10 MG TAB*] 10 mg PO TID PRN #20 tab PRN Reason: Spasms - Back Ibuprofen TAB* [Motrin TAB* 800 MG] 800 mg PO Q6H PRN #30 tab PRN Reason: Pain Patient Education Materials: Back Pain (ED) Referrals: Michel Deutsch MD [Primary Care Provider] - Additional Instructions: Please follow up with your primary care provider in 1-2 days. RETURN TO EMERGENCY DEPARTMENT FOR ANY NEW OR WORSENING SYMPTOMS. - Attestation Statements Document Initiated by Scribe: Yes Documenting Scribe: Zonia Brower Provider For Whom Scribe is Documenting (Include Credential): Peng Covarrubias MD Scribe Attestation: Zonia Glynn, scribed for Peng Covarrubias MD on 12/15/17 at 0218.
[2017-12-15 02:44] VITALS: BP 127/76
== END 2017-12-15 02:35 | disposition home or self-care (01) ==
LOC: ED 23:38
DX: R55 Syncope and collapse (principal); M54.9 Dorsalgia, unspecified; F17.210 Nicotine dependence, cigarettes, uncomplicated
CPT/HCPCS: 36415; 72128; 72131; 84702; 96372; 99283; J1885

== ENCOUNTER 2018-09-22 14:53 | Emergency (ER) | payer OTHER ==
--- NOTE | 2018-09-22 15:01 | ED ---
Lower Extremity - HPI Summary HPI Summary: Patient is a 27-year-old female who presents emergency department for left foot injury that occurred this morning. Patient states she slipped on water and flexion and twisted left foot. Patient states she is unable to bear weight secondary to pain. No other injuries were sustained. Symptoms are mild in severity. - History of Current Complaint Chief Complaint: EDExtremityLower Stated Complaint: LT FOOT INJURY PER PT Time Seen by Provider: 09/22/18 15:00 Hx Obtained From: Patient Hx Last Menstrual Period: 09/26/16 Pain Intensity: 8 - Allergies/Home Medications Allergies/Adverse Reactions: Allergies Allergy/AdvReac Type Severity Reaction Status Date / Time aspirin Allergy Unkown Verified 09/22/18 14:58 Home Medications: Home Medications NK [No Home Medications Reported] 09/22/18 [History Confirmed 09/22/18] PMH/Surg Hx/FS Hx/Imm Hx Previously Healthy: Yes Endocrine/Hematology History: Reports: Hx Anemia - during - resolved Denies: Hx Diabetes, Hx Thyroid Disease Cardiovascular History: Denies: Hx Congenital Heart Disease, Hx Hypercholesterolemia, Hx Hypotension , Hx Hypertension, Hx Myocardial Infarction, Hx Rheumatic Fever Respiratory History: Reports: Hx Asthma - controlled Denies: Hx Pneumonia GI History: Denies: Hx Gastroesophageal Reflux Disease, Hx Irritable Bowel Musculoskeletal History: Reports: Hx Scoliosis - thoracic spine Denies: Hx Arthritis, Hx Back Problems, Hx Orthopedic Injury Sensory History: Reports: Hx Contacts or Glasses Opthamlomology History: Reports: Hx Contacts or Glasses Neurological History: Denies: Hx Headaches, Hx Peripheral Neuropathy - Surgical History Surgery Procedure, Year, and Place: none - Immunization History Date of Tetanus Vaccine: UP TO DATE Date of Influenza Vaccine: NONE Infectious Disease History: No Infectious Disease History: Denies: Hx Clostridium Difficile, Hx Hepatitis, Hx Human Immunodeficiency Virus (HIV), Hx of Known/Suspected MRSA, Hx Shingles, Hx Tuberculosis, Hx Known/ Suspected VRE, Hx Known/Suspected VRSA, History Other Infectious Disease, Traveled Outside the [place] in Last 30 Days - Family History Known Family History: Positive: Non-Contributory Negative: Cardiac Disease, Diabetes - Social History Occupation: Unemployed Lives: With Family Alcohol Use: Occasionally Alcohol Amount: "for special occasions" Hx Substance Use: No Substance Use Type: Reports: None Hx Tobacco Use: Yes Smoking Status (MU): Current Every Day Smoker Type: Cigarettes Amount Used/How Often: 1/2 PPD Have You Smoked in the Last Year: Yes Review of Systems Positive: Other - pain to left foot Positive: Bruising Neurological: Negative Negative: Weakness, Paresthesia, Numbness All Other Systems Reviewed And Are Negative: Yes Physical Exam Triage Information Reviewed: Yes Vital Signs On Initial Exam: Initial Vitals Temp Pulse Resp BP Pulse Ox 99.6 F 87 16 123/73 98 09/22/18 14:55 09/22/18 14:55 09/22/18 14:55 09/22/18 14:55 09/22/18 14:55 Vital Signs Reviewed: Yes Appearance: Positive: Well-Appearing - Patient sitting on bed in no acute distress. present. Skin: Positive: Warm, Dry Head/Face: Positive: Normal Head/Face Inspection Eyes: Positive: Normal, EOMI Neck: Positive: Supple Musculoskeletal: Positive: Other - Mild edema and diffuse pain over the dorsal and lateral aspect of the left foot. Good palpable pedal pulse. No breaks in the skin. No proximal tib-fib or knee pain. Neurological: Positive: Normal, CN Intact II-III Psychiatric: Positive: Affect/Mood Appropriate Diagnostics - Vital Signs Vital Signs Temp Pulse Resp BP Pulse Ox 09/22/18 14:55 99.6 F 87 16 123/73 98 - Laboratory Lab Statement: Any lab studies that have been ordered have been reviewed, and results considered in the medical decision making process. Lower Extremity Course/Dx - Course Course Of Treatment: X-rays negative for acute fracture dislocation, reading per radiology. Patient placed in Adam wrap and postop shoe. She denied the need for crutches. Advised patient if pain persists greater than 1-2 weeks for repeat evaluation and repeat imaging. To ice and elevate intermittently. Ibuprofen for pain as directed. Patient understands and agrees with plan. - Diagnoses Differential Diagnosis/HQI/PQRI: Positive: Contusion, Fracture (Closed), Sprain , Strain Provider Diagnoses: Foot sprain Discharge - Sign-Out/Discharge Documenting (check all that apply): Patient Departure Patient Received Moderate/Deep Sedation with Procedure: No - Discharge Plan Condition: Good Disposition: HOME Patient Education Materials: Foot Sprain (ED) Referrals: Michel Deutsch MD [Primary Care Provider] - Lizzie Glaser MD [Medical Doctor] - Additional Instructions: Follow up with your PCP or ortho clinic if pain persist for repeat imaging Ice and elevate Tylenol or motrin for pain as directed Return to ER if symptoms change or worsen - Billing Disposition and Condition Condition: GOOD Disposition: Home
[2018-09-22] MEDS ORDERED: Ibuprofen TAB* 600 MG PO ONE (15:17)
[2018-09-22 17:00] VITALS: BP 114/65
== END 2018-09-22 16:53 | disposition home or self-care (01) ==
LOC: ED 14:53
DX: S93.602A Unspecified sprain of left foot, initial encounter (principal); W01.0XXA Fall on same level from slipping, tripping and stumbling without subsequent striking against object, initial encounter; Y92.9 Unspecified place or not applicable; J45.909 Unspecified asthma, uncomplicated; F17.210 Nicotine dependence, cigarettes, uncomplicated; Z88.6 Allergy status to analgesic agent
CPT/HCPCS: 99282; A9270-GY

== ENCOUNTER 2019-01-26 12:37 | Emergency (ER) | payer SELFPAY ==
--- NOTE | 2019-01-26 13:02 | UC ---
- HPI Summary HPI Summary: This pt is a 28 y/o female, A1 currently 7 weeks , presenting to [facility] for right breast pain and warmth worsening over the past 3 days. Pt reports she has hx of mastitis and has had it since her second child's , 3 years ago. Pt notes mastitis never cleared and was never placed on antibiotics or had a mammogram. At one point pt states she had discharge from right nipple and this was checked out by her PCP who told her it was her mastitis draining. Pt reports for the past 3 days she has had right breast pain, warmth "with radiating heat," nausea, and low grade fevers. Pt notes Tmax of 99."something" yesterday. She has been taking Tylenol and it helps "take the edge off." Pt had to leave work today to come to the ED due to pain. Pt is not breast feeding currently. Pt found out 2 weeks ago she is . Her OBGYN is in Dr. Sutherland's office but has not seen them yet. Pt is taking vitamins. PMHx: scoliosis, lyme disease, anemia, asthma. Pt goes every 6 months to get her heart monitor due to palpitations. Denies taking any medications. Pt admits to tobacco and occasional use. Denies drug use. Allergic to aspirin. Medications reviewed. Allergies noted. - History of Current Complaint Hx Obtained From: Patient Breast Chief Complaint: Pain, Breast, Right, Other: - warmth Onset/Duration: Started Weeks Ago, Still Present, Worse Since - the past 3 days Timing: Lasting Days - 3 Breast Pain Aggravating Factors: Other: - movement Breast Pain Alleviating Factors: Nothing Breast Associated Signs/Symptoms: Fever, Warmth - Allergy/Home Medications Allergies/Adverse Reactions: Allergies Allergy/AdvReac Type Severity Reaction Status Date / Time aspirin AdvReac Unkown Verified 01/26/19 12:43 PMH/Surg Hx/FS Hx/Imm Hx - Additional Past Medical History Additional PMH: PMHx: scoliosis, Lyme disease. Other Endocrine History: anemia Respiratory History: Asthma - Surgical History Surgical History: None - Family History Known Family History: Negative: Cardiac Disease, Diabetes - Social History Occupation: Employed Full-time - [employer] Alcohol Use: Occasionally Alcohol Amount: "for special occasions" Substance Use Type: None Smoking Status (MU): Current Every Day Smoker Type: Cigarettes Amount Used/How Often: 1/2 PPD Have You Smoked in the Last Year: Yes Household Exposure Type: Cigarettes Review of Systems All Other Systems Reviewed And Are Negative: Yes Constitutional: Positive: Fever Skin: Positive: Other - POSITIVE: warmth on right breast, right breast pain Gastrointestinal: Positive: Nausea Physical Exam - Summary Physical Exam Summary: Constitutional: Well-developed, Well-nourished, Alert. (-) Distressed Skin: Warm, Dry. Right breast with some erythema starting at the nipple at roughly 1 and 3 o'clock. Area is warm and tender. No obvious mass. No axillary lymphadenopathy. HENT: Normocephalic; Atraumatic Eyes: Conjunctiva normal Neck: Musculoskeletal ROM normal neck. (-) JVD, (-) Stridor, (-) Tracheal deviation Cardio: Rhythm regular, rate normal, Heart sounds normal; Intact distal pulses; The pedal pulses are 2+ and symmetric. Radial pulses are 2+ and symmetric. (-) Murmur Pulmonary/Chest wall: Effort normal. (-) Respiratory distress, (-) Wheezes, (-) Rales Abd: Soft, (-) tenderness, (-) Distension, (-) Guarding, (-) Rebound Musculoskeletal: (-) Edema Lymph: (-) Cervical adenopathy Neuro: Alert, Oriented x3 Psych: Mood and affect Normal Triage Information Reviewed: Yes Vital Signs: Initial Vital Signs Temp 99.5 F 01/26/19 12:42 Pulse 93 01/26/19 12:42 Resp 16 01/26/19 12:42 BP 135/82 01/26/19 12:42 Pulse Ox 99 01/26/19 12:42 Vital Signs Reviewed: Yes Procedures - Sedation Patient Received Moderate/Deep Sedation with Procedure: No Diagnostics - Radiology Right breast ultrasound Radiology Interpretation Completed By: Radiologist Summary of Radiographic Findings: IMPRESSION: At the retroareolar 6:00 position of the right breast there is a well-circumscribed mixed echogenicity mildly vascular focus beneath the dermal layer measuring 1.6 x 1.7 x1.3 cm. These nonspecific findings have a broad differential diagnosis. Follow-up imaging after an appropriate course of therapy is recommended to ascertain resolution. Dr. Hu has reviewed this report. Re-Evaluation - Re-Evaluation First Eval Re-Evaluation Time: 14:20 Comment: Reviewed results with patient. Breast Pain Course/Dx - Course Course Of Treatment: Patient is here with tenderness, erythema of the right breast. Patient states she's had mastitis for 3 years and has never been treated with antibiotics, never had an ultrasound, and never had a mammogram. Patient does have a tender , warm breasts on exam. Patient had an ultrasound performed which showed a small mass with no underlying abscess. Patient was started on Keflex and referred to surgery for further workup of her breast mass. - Diagnoses Provider Diagnoses: Mastitis, Breast lump Discharge ED - Sign-Out/Discharge Documenting (check all that apply): Patient Departure - Discharge home - Discharge Plan Condition: Stable Disposition: HOME Prescriptions: Cephalexin CAP* [Keflex CAP*] 500 mg PO QID 10 Days #40 cap Patient Education Materials: Mastitis (ED) Referrals: Michel Deutsch MD [Primary Care Provider] - Terri Woodson MD [Medical Doctor] - Additional Instructions: Take your antibiotics as prescribed. Follow up with Dr. Woodson, surgeon, to have your breast lump evaluated. Take Tylenol for the pain. Call your OBGYN to set up an initial appointment. PLEASE RETURN TO EMERGENCY DEPARTMENT FOR ANY WORSENING SWELLING, DRAINAGE, OR ANY OTHER CONCERNING SYMPTOMS. - Billing Disposition and Condition Condition: STABLE Disposition: Home - Attestation Statements Document Initiated by Doretha: Yes Documenting [place]: Zonia Brower Provider For Whom Doretha is Documenting (Include Credential): Antonio Hu MD Scribe Attestation: Zonia Glynn, scribed for Antonio Hu MD on 01/26/19 at 1834. Scribe Documentation Reviewed: Yes Provider Attestation: The documentation as recorded by the Zonia tovar accurately reflects the service I personally performed and the decisions made by me, Antonio Hu MD Status of Scribe Document: Viewed
[2019-01-26] MEDS ORDERED: Acetaminophen TAB* 325 MG PO ONE (13:03)
[2019-01-26 13:15] LABS: ABS Eosinophils 0.1 10^3/ul (0-0.6); ABS Monocytes 0.4 10^3/ul (0-0.8); Eosinophil % 0.6 %; Hematocrit 41 % (35-47); Hemoglobin 14.2 g/dL (12.0-16.0); Lymphocyte % 10.7 %; Mean Corpuscular HGB Conc 35 g/dL (31-36); Mean Corpuscular Hemoglobin 31 pg (27-31); Mean Corpuscular Volume 90 fL (80-97); Mean Platelet Volume 9.4 fL (7.4-10.4); Platelet Count 195 10^3/uL (150-450); Red Blood Count 4.53 10^6 /uL (3.70-4.87); Red Cell Distribution Width 13 % (10-15); White Blood Count 9.5 10^3/uL (3.5-10.8)
[2019-01-26 13:32] LABS: Albumin 4.6 g/dL (3.2-5.2); Albumin/Globulin Ratio 1.6 (1-3); BUN/Creatinine Ratio 12.7 (8-20); Calcium 9.9 mg/dL (8.6-10.3); EGFR African American 137.2 (>60); EGFR Non-African American 113.4 (>60); Globulin 2.9 g/dL (2-4); Potassium 3.8 mmol/L (3.5-5.0); Total Bilirubin 0.6 mg/dL (0.2-1.0); Total Protein 7.5 g/dL (6.4-8.9)
[2019-01-26] MEDS ORDERED: Cephalexin CAP* 500 MG PO ONE (14:17)
[2019-01-26 14:45] VITALS: BP 111/63
== END 2019-01-26 14:35 | disposition home or self-care (01) ==
LOC: ED 12:37
DX: N61.0 Mastitis without abscess (principal); N63.0 Unspecified lump in unspecified breast; M41.9 Scoliosis, unspecified; A69.20 Lyme disease, unspecified; F17.210 Nicotine dependence, cigarettes, uncomplicated
CPT/HCPCS: 36415; 80053; 84702; 85025; 99283; A9270-GY

== ENCOUNTER 2019-02-05 13:36 | Emergency (ER) | payer SELFPAY ==
[2019-02-05] MEDS ORDERED: NS 0.9% 1000 ML** 1,000 ML IV ONE (14:43)
[2019-02-05] MEDS ORDERED: Morphine 10 MG/ML VIAL (1 ml) IV ONE (14:43)
[2019-02-05 15:10] LABS: ABS Lymphocytes 0.9 10^3/ul (1.0-4.8); ABS Monocytes 0.4 10^3/ul (0-0.8); Eosinophil % 0.4 %; Hematocrit 38 % (35-47); Hemoglobin 13.1 g/dL (12.0-16.0); Lymphocyte % 9.7 %; Mean Corpuscular HGB Conc 34 g/dL (31-36); Mean Corpuscular Hemoglobin 31 pg (27-31); Mean Corpuscular Volume 90 fL (80-97); Mean Platelet Volume 9.1 fL (7.4-10.4); Platelet Count 199 10^3/uL (150-450); Red Blood Count 4.27 10^6 /uL (3.70-4.87); Red Cell Distribution Width 12 % (10-15); White Blood Count 9.4 10^3/uL (3.5-10.8)
[2019-02-05 15:34] LABS: Albumin 4.5 g/dL (3.2-5.2); Albumin/Globulin Ratio 1.6 (1-3); BUN/Creatinine Ratio 16.1 (8-20); C Reactive Protein 11.66 mg/L (<8.01); Calcium 9.4 mg/dL (8.6-10.3); EGFR African American 157.1 (>60); EGFR Non-African American 129.9 (>60); Globulin 2.9 g/dL (2-4); Potassium 3.5 mmol/L (3.5-5.0); Total Bilirubin 0.3 mg/dL (0.2-1.0); Total Protein 7.4 g/dL (6.4-8.9)
--- NOTE | 2019-02-05 15:34 | ED ---
Complex/Multi-Sys Presentation - HPI Summary HPI Summary: Patient is a 28 y/o F who is 9 weeks tomorrow, 02/06/2019, and with known right breast mastitis presenting to [facility] with complaints of low-grade fever, chills, worsened pain and erythema. She was diagnosed with right breast mastitis on 01/28/19 and started on Keflex 01/29/19. She states that she initially had improvement of pain, but, a few days ago, she had worsening of her pain. Patient notes red/purple discoloration of her right breast. No drainage or discharge is noted. Some nausea is endorsed but this is attributed to the fact that she is . Patient states that she cannot be evaluated by OBGYN until 02/14/2019. ASA allergy noted. On triage, pain is rated 9/10, palpation is noted to aggravate Sx. Home medications and allergies are reviewed. - History Of Current Complaint Chief Complaint: EDBreastComplaint Time Seen by Provider: 02/05/19 14:34 Hx Obtained From: Patient Onset/Duration: Lasting Days, Still Present, Worse Since Timing: Constant, Days Severity Currently: Severe Location: Pain At: - right breast Aggravating Factor(s): palpation Alleviating Factor(s): nothing Associated Signs And Symptoms: Positive: Nausea - secondary to , Fever , Other - positive - chills, erythema, right breast pain; negative - breast discharge or drainage. - Allergies/Home Medications Allergies/Adverse Reactions: Allergies Allergy/AdvReac Type Severity Reaction Status Date / Time aspirin AdvReac Unkown Verified 02/05/19 13:48 Home Medications: Home Medications Pnv,Calcium 72/Iron,Carb/Folic [ Plus Iron Tablet] 1 tab PO DAILY [History Confirmed 02/05/19] PMH/Surg Hx/FS Hx/Imm Hx Endocrine/Hematology History: Reports: Hx Anemia - during - resolved Denies: Hx Diabetes, Hx Thyroid Disease Cardiovascular History: Denies: Hx Congenital Heart Disease, Hx Hypercholesterolemia, Hx Hypotension , Hx Hypertension, Hx Myocardial Infarction, Hx Rheumatic Fever Respiratory History: Reports: Hx Asthma - controlled Denies: Hx Pneumonia GI History: Denies: Hx Gastroesophageal Reflux Disease, Hx Irritable Bowel Musculoskeletal History: Reports: Hx Scoliosis - thoracic spine Denies: Hx Arthritis, Hx Back Problems, Hx Orthopedic Injury Sensory History: Reports: Hx Contacts or Glasses Opthamlomology History: Reports: Hx Contacts or Glasses Neurological History: Denies: Hx Headaches, Hx Peripheral Neuropathy - Surgical History Surgery Procedure, Year, and Place: none - Immunization History Date of Tetanus Vaccine: UP TO DATE Date of Influenza Vaccine: NONE Infectious Disease History: No Infectious Disease History: Denies: Hx Clostridium Difficile, Hx Hepatitis, Hx Human Immunodeficiency Virus (HIV), Hx of Known/Suspected MRSA, Hx Shingles, Hx Tuberculosis, Hx Known/ Suspected VRE, Hx Known/Suspected VRSA, History Other Infectious Disease, Traveled Outside the [place] in Last 30 Days - Family History Known Family History: Negative: Cardiac Disease, Diabetes - Social History Alcohol Use: None Alcohol Amount: "for special occasions" Hx Substance Use: No Substance Use Type: Reports: None Hx Tobacco Use: Yes Smoking Status (MU): Current Every Day Smoker Type: Cigarettes Amount Used/How Often: 1/2 PPD Have You Smoked in the Last Year: Yes Review of Systems Positive: Fever, Chills Positive: Nausea - secondary to Skin: Other - positive - right breast erythema and pain; negative - right breast drainage or discharge All Other Systems Reviewed And Are Negative: Yes Physical Exam - Summary Physical Exam Summary: Appearance: Well-appearing, Well-nourished, lying in bed comfortably Skin: Warm, dry, no obvious rash; right breast of cellulitis extending outward from nipple, approximately with a diameter of 8 cm. Nipple is retracted. Nurse' s aide Marielle chaperoned exam. Eyes: sclera anicteric, no conjunctival pallor ENT: mucous membranes moist, pharynx appears normal Neck: Supple, nontender Respiratory: Clear to auscultation, no signs of respiratory distress Cardiovascular: Normal S1, S2. No murmurs. Normal distal pulses in tibial and radial bilaterally. Abdomen: Soft, nontender, normal active bowel sounds present Musculoskeletal: Normal, Strength/ROM Intact Neurological: A&Ox3, awake and alert, mentation is normal, speech is fluent and appropriate Psychiatric: affect is normal, does not appear anxious or depressed Triage Information Reviewed: Yes Vital Signs On Initial Exam: Initial Vitals Temp Pulse Resp BP Pulse Ox 98.7 F 95 18 133/79 99 02/05/19 13:44 02/05/19 13:44 02/05/19 13:44 02/05/19 13:44 02/05/19 13:44 Vital Signs Reviewed: Yes Procedures - Sedation Patient Received Moderate/Deep Sedation with Procedure: No Diagnostics - Vital Signs Vital Signs Temp Pulse Resp BP Pulse Ox 02/05/19 15:01 16 02/05/19 13:44 98.7 F 95 18 133/79 99 - Laboratory Lab Results: Lab Results 02/05/19 Range/Units 14:57 WBC 9.4 (3.5-10.8) 10^3/uL RBC 4.27 (3.70-4.87) 10^6 /uL Hgb 13.1 (12.0-16.0) g/dL Hct 38 (35-47) % MCV 90 (80-97) fL MCH 31 (27-31) pg MCHC 34 (31-36) g/dL RDW 12 (10-15) % Plt Count 199 (150-450) 10^3/uL MPV 9.1 (7.4-10.4) fL Neut % (Auto) 85.0 % Lymph % (Auto) 9.7 % [place] % (Auto) 4.7 % Eos % (Auto) 0.4 % Baso % (Auto) 0.2 % Absolute Neuts (auto) 8.0 H (1.5-7.7) 10^3/ul Absolute Lymphs (auto) 0.9 L (1.0-4.8) 10^3/ul Absolute Monos (auto) 0.4 (0-0.8) 10^3/ul Absolute Eos (auto) 0.0 (0-0.6) 10^3/ul Absolute Basos (auto) 0.0 (0-0.2) 10^3/ul Absolute Nucleated RBC 0.0 10^3/ul Nucleated RBC % 0.0 Result Diagrams: 02/05/19 14:57 02/05/19 14:57 Lab Statement: Any lab studies that have been ordered have been reviewed, and results considered in the medical decision making process. - Ultrasound RIGHT BREAST US Ultrasound Interpretation Completed By: Radiologist Summary of Ultrasound Findings: ASSESSMENT: THERE IS A COMPLEX HYPERVASCULAR MASS OF THE RIGHT RETROAREOLAR BREAST. MEASURING UP TO 3.2 CM, WITH THE CYSTIC COMPONENT MEASURES APPROXIMATELY 1 CM IN DIAMETER. THIS IS MOST CONSISTENT WITH PHLEGMON AND ABSCESS, PROGRESSED FROM 01 25FEBRUARY 25, 2018. RECOMMENDATION: RECOMMEND SHORT-TERM FOLLOW-UP IMAGING AFTER COMPLETION OF TREATMENT TO. EXCLUDE UNDERLYING BREAST PARENCHYMAL PATHOLOGY WITH THREE-MONTH FOLLOW-UP ULTRASOUND OF. THE RIGHT BREAST. THIS REPORT WAS REVIEWED BY ED PHYSICIAN. Complex Multi-Symp Course/Dx Course Of Treatment: Patient is a 28 y/o F who is 9 weeks tomorrow, 02/06, and with known right breast mastitis presenting to [facility] with complaints of low-grade fever, chills, worsened pain and erythema. She was diagnosed with right breast mastitis on 01/28/19 and started on Keflex 01/29/19. She states that she initially had improvement of pain, but, a few days ago, she had worsening of her pain. Patient notes red/purple discoloration of her right breast. No drainage or discharge is noted. Some nausea is endorsed but this is attributed to the fact that she is . Patient states that she cannot be evaluated by OBGYN until 02/14/2019. On physical exam, right breast of cellulitis extending outward from nipple, approximately with a diameter of 8 cm noted. Nipple is retracted. Bloodwork obtained and within normal limits with exception of absolute neuts 8, absolute lymphs 0.9, lactic acid 0.4, CRP 11.66. UA was negative. During ED course, patient received fluids and morphine 5 mg IV. RIGHT BREAST US ASSESSMENT: THERE IS A COMPLEX HYPERVASCULAR MASS OF THE RIGHT RETROAREOLAR BREAST. MEASURING UP TO 3.2 CM, WITH THE CYSTIC COMPONENT MEASURES APPROXIMATELY 1 CM IN DIAMETER. THIS IS MOST CONSISTENT WITH PHLEGMON AND ABSCESS, PROGRESSED FROM 01 25FEBRUARY 25, 2018. RECOMMENDATION: RECOMMEND SHORT-TERM FOLLOW-UP IMAGING AFTER COMPLETION OF TREATMENT TO. EXCLUDE UNDERLYING BREAST PARENCHYMAL PATHOLOGY WITH THREE-MONTH FOLLOW-UP ULTRASOUND OF. THE RIGHT BREAST. 1602 - Patient's case was discussed with Dr. Woodson, surgery. She recommends that radiology be consulted to discuss possibility of US -guided aspiration. 1617 - Dr. Sosa, radiology, was consulted, IR not available at this time. 1631 - Dr. Matt, OBGYN, was consulted. He agrees with discharge to home on Clindamyacin with close follow up. - Diagnoses Provider Diagnoses: Acute mastitis of right breast - Physician Notifications Discussed Care Of Patient With: Terri Woodson Time Discussed With Above Provider: 16:02 Instructed by Provider To: Other - 1602 - Patient's case was discussed with Dr. Woodson. She recommends that radiology be consulted to discuss possibility of US- guided aspiration. 1617 - Dr. Sosa was consulted, IR not available at this time. 1631 - Dr. Matt, OBGYN, was consulted. He agrees with discharge to home on Clindamyacin with close follow up. Discharge ED - Sign-Out/Discharge Documenting (check all that apply): Patient Departure - DISCHARGE - Discharge Plan Condition: Stable Disposition: HOME Prescriptions: Clindamycin HCl 300 mg PO TID #30 capsule Patient Education Materials: Mastitis (ED) Referrals: Michel Deutsch MD [Primary Care Provider] - Additional Instructions: Contact your OB first thing morning, I would like them to take a look at this sometime or Monday. It typically takes 2-3 days for infections like this to start turning around on appropriate antibiotics. If you are getting much worse (shaking chills, high fever, or other systemic symptoms) contact the telephone sales representative doctor sooner. - Attestation Statements Document Initiated by Scribe: Yes Documenting Scribe: UMESH LORD Provider For Whom Doretha is Documenting (Include Credential): MIKE SUAREZ MD Scribe Attestation: I, UMESH LORD, scribed for MIKE SUAREZ MD on 02/05/19 at 1658. Status of Scribe Document: Ready
[2019-02-05 16:03] LABS: Urine Appearance Clear; Urine Bilirubin Negative (Negative); Urine Blood Negative (Negative); Urine Color Yellow; Urine Glucose Negative (Negative); Urine Ketones Negative (Negative); Urine Nitrite Negative (Negative); Urine Protein Negative (Negative); Urine Specific Gravity 1.009 (1.010-1.030); Urine Urobilinogen Negative (Negative)
[2019-02-05] MEDS ORDERED: Clindamycin CAP* 150 MG PO ONE (16:41)
[2019-02-05 16:58] VITALS: BP 121/68
== END 2019-02-05 16:57 | disposition home or self-care (01) ==
LOC: ED 13:36
DX: N61.0 Mastitis without abscess (principal); J45.909 Unspecified asthma, uncomplicated; O99.331 Smoking (tobacco) complicating pregnancy, first trimester; F17.210 Nicotine dependence, cigarettes, uncomplicated; Z3A.09 9 weeks gestation of pregnancy; Z88.8 Allergy status to other drugs, medicaments and biological substances
CPT/HCPCS: 36415; 80053; 81003; 83605; 85025; 86140; 87040; 96361; 96374; 99283; A9270-GY; J2270

== ENCOUNTER 2019-04-08 12:46 | Emergency (ER) | payer MEDICAID ==
--- NOTE | 2019-04-08 14:46 | ED ---
Upper Extremity Pain - HPI Summary HPI Summary: 28-year-old female who is 18 weeks presents with left wrist injury today. States that she was lifting her child when she felt a pop in her left wrist. she had no pain with the injury but she noticed a bump behind her left wrist. States she has had some pain that radiates up to her elbow. she has full range of motion of her wrist. States that her fingers feel numb but still has some sensation. She is right-handed. She has no other medical conditions. - History of Current Complaint Chief Complaint: EDExtremityUpper Stated Complaint: LEFT WRIST INJURY PER PT Time Seen by Provider: 04/08/19 14:32 Hx Last Menstrual Period: 09/26/16 - Allergies/Home Medications Allergies/Adverse Reactions: Allergies Allergy/AdvReac Type Severity Reaction Status Date / Time aspirin AdvReac Unkown Verified 02/05/19 13:48 Home Medications: Home Medications Cephalexin CAP* [Keflex CAP*] 500 mg PO QID 10 Days #40 cap 01/26/19 [Rx Confirmed 02/05/19] Pnv,Calcium 72/Iron,Carb/Folic [ Plus Iron Tablet] 1 tab PO DAILY [History Confirmed 02/05/19] clindamycin HCL [Clindamycin HCl] 300 mg PO TID #30 capsule 02/05/19 [Rx] oxyCODONE TAB* [Roxycodone TAB 5 mg*] 5 mg PO Q4H PRN #15 tab MDD 4 02/05/19 [Rx ] PMH/Surg Hx/FS Hx/Imm Hx Endocrine/Hematology History: Reports: Hx Anemia - during - resolved Denies: Hx Diabetes, Hx Thyroid Disease Cardiovascular History: Denies: Hx Congenital Heart Disease, Hx Hypercholesterolemia, Hx Hypotension , Hx Hypertension, Hx Myocardial Infarction, Hx Rheumatic Fever Respiratory History: Reports: Hx Asthma - controlled Denies: Hx Pneumonia GI History: Denies: Hx Gastroesophageal Reflux Disease, Hx Irritable Bowel Musculoskeletal History: Reports: Hx Scoliosis - thoracic spine Denies: Hx Arthritis, Hx Back Problems, Hx Orthopedic Injury Sensory History: Reports: Hx Contacts or Glasses Opthamlomology History: Reports: Hx Contacts or Glasses Neurological History: Denies: Hx Headaches, Hx Peripheral Neuropathy - Surgical History Surgery Procedure, Year, and Place: none - Immunization History Date of Tetanus Vaccine: UP TO DATE Date of Influenza Vaccine: NONE Infectious Disease History: No Infectious Disease History: Denies: Hx Clostridium Difficile, Hx Hepatitis, Hx Human Immunodeficiency Virus (HIV), Hx of Known/Suspected MRSA, Hx Shingles, Hx Tuberculosis, Hx Known/ Suspected VRE, Hx Known/Suspected VRSA, History Other Infectious Disease, Traveled Outside the [place] in Last 30 Days - Family History Known Family History: Negative: Cardiac Disease, Diabetes - Social History Alcohol Use: None Alcohol Amount: "for special occasions" Hx Substance Use: No Substance Use Type: Reports: None Hx Tobacco Use: Yes Smoking Status (MU): Current Every Day Smoker Type: Cigarettes Amount Used/How Often: 1/2 PPD Have You Smoked in the Last Year: Yes Review of Systems Negative: Fever Negative: Chest Pain Negative: Shortness Of Breath Positive: Myalgia - left wrist injury All Other Systems Reviewed And Are Negative: Yes Physical Exam Triage Information Reviewed: Yes Vital Signs On Initial Exam: Initial Vitals Temp Pulse Resp BP Pulse Ox 99.6 F 107 16 124/70 98 04/08/19 12:55 04/08/19 12:55 04/08/19 12:55 04/08/19 12:55 04/08/19 12:55 Vital Signs Reviewed: Yes Appearance: Positive: Well-Appearing Skin: Positive: Warm, Dry Head/Face: Positive: Normal Head/Face Inspection Eyes: Positive: Normal, Conjunctiva Clear ENT: Positive: Pharynx normal Respiratory/Lung Sounds: Positive: Clear to Auscultation, Breath Sounds Present Cardiovascular: Positive: Normal, RRR Musculoskeletal: Positive: Strength/ROM Intact - left wrist and elbow, Other - cystic like structure on posterior aspect of left wrist, good pulses Neurological: Positive: Normal Psychiatric: Positive: Normal Procedures - Sedation Patient Received Moderate/Deep Sedation with Procedure: No Diagnostics - Vital Signs Vital Signs Temp Pulse Resp BP Pulse Ox 04/08/19 12:55 99.6 F 107 16 124/70 98 - Laboratory Lab Statement: Any lab studies that have been ordered have been reviewed, and results considered in the medical decision making process. Course/Dx - Course Course Of Treatment: 28-year-old female who is 18 weeks presents with left wrist injury today. States that she was lifting her child when she felt a pop in her left wrist. she had no pain with the injury but she noticed a bump behind her left wrist. States she has had some pain that radiates up to her elbow. she has full range of motion of her wrist. States that her fingers feel numb but still has some sensation. She is right-handed. She has no other medical conditions. On exam has cystic like structure on the posterior aspect of left wrist. Neurovascular intact. Has full ROM of wrist and elbow. No point tenderness. Discussed getting an x-ray but at this point to not suspect any bony abnormality so will not get one as patient is . Placed in [place]. Told follow up with ortho. Patient understands and agrees the plan. - Diagnoses Differential Diagnosis/HQI/PQRI: Positive: Fracture (Closed), Strain, Sprain Provider Diagnoses: Left wrist injury, Ganglion cyst Discharge ED - Sign-Out/Discharge Documenting (check all that apply): Patient Departure - Discharge Plan Condition: Good Disposition: HOME Patient Education Materials: Ganglion Cysts (ED) Referrals: Michel Deutsch MD [Primary Care Provider] - Kaleb Lozano MD [Medical Doctor] - Additional Instructions: symptoms mostly like due to ganglion cyst ice, elevate use adam follow up with ortho take tyenlol for pain every 6 hours as needed Return to ED if develop any new or worsening symptoms - Billing Disposition and Condition Condition: GOOD Disposition: Home - Attestation Statements Provider Attestation: I was available for consult. This patient was seen by the [facility]. The patient was not presented to, seen by, or examined by me. -Enrique
[2019-04-08 15:12] VITALS: BP 104/65
== END 2019-04-08 15:11 | disposition home or self-care (01) ==
LOC: ED 12:46
DX: S69.92XA Unspecified injury of left wrist, hand and finger(s), initial encounter (principal); X50.0XXA Overexertion from strenuous movement or load, initial encounter; Y93.89 Activity, other specified; Y92.9 Unspecified place or not applicable; M67.432 Ganglion, left wrist; Z3A.18 18 weeks gestation of pregnancy; Z88.6 Allergy status to analgesic agent; F17.210 Nicotine dependence, cigarettes, uncomplicated
CPT/HCPCS: 99282

== ENCOUNTER 2021-10-28 08:08 | Inpatient (IN) ==
[2021-10-28] MEDS ORDERED: Lactated Ringers 1000 ml BAG 1,000 ML IV ONE ×2 (09:15→15:01)
[2021-10-28] MEDS ORDERED: Buffered Lidocaine 1% SYRIN 1 ml INTRADERM ONE (09:15)
[2021-10-28 09:29] LABS: Urine Benzodiazepine Screen None Detected (None Detect); Urine Opiates Screen None Detected (None Detect)
[2021-10-28] MEDS ORDERED: Oxytocin in LR 20,000 MILLI.UNIT/1,000 ML BAG IV SCH ×2 (09:45→17:00)
[2021-10-28] MEDS: Lactated Ringers 1000 ml BAG 1,000 ML IV SCH ×2 (10:01→14:46)
[2021-10-28 10:39] LABS: Hematocrit 31 % (35-47); Hemoglobin 10.5 g/dL (12.0-16.0); Mean Corpuscular HGB Conc 34 g/dL (31-36); Mean Corpuscular Hemoglobin 30 pg (27-31); Mean Corpuscular Volume 89 fL (80-97); Mean Platelet Volume 9.1 fL (7.4-10.4); Platelet Count 188 10^3/uL (150-450); Red Blood Count 3.46 10^6 /uL (3.70-4.87); Red Cell Distribution Width 13 % (10-15); White Blood Count 8.8 10^3/uL (3.5-10.8)
[2021-10-28 12:00] LABS: ABS Lymphocytes 1.3 10^3/ul (1.0-4.8); ABS Monocytes 0.5 10^3/ul (0-0.8); ABS Neutrophils 6.9 10^3/ul (1.5-7.7); Eosinophil % 0.3 %; Lymphocyte % 15.2 %
[2021-10-28] MEDS ORDERED: OBEPIDURAL (200 ML) 200 ML EPIDURAL ONE (14:03)
[2021-10-28] MEDS ORDERED: Lidocaine 1.5% EPI 1:200,000 30 ML SDV ONE (14:15)
[2021-10-28] MEDS ORDERED: Sodium Citrate/Citric Acid LIQ 15 ML UDC PO PRN (15:01)
[2021-10-28] MEDS ORDERED: Phenylephrine 40 mcg/mL 10mL (400mcg) SYRINGE IV PUSH PRN ×2 (15:01)
[2021-10-28] MEDS ORDERED: OBEPIDURAL (200 ML) 200 ML EPIDURAL SCH (16:00)
[2021-10-28] MEDS ORDERED: Lactated Ringers 1000 ml BAG 1,000 ML IV SCH ×2 (16:00→17:00)
[2021-10-28] MEDS ORDERED: Dibucaine 1% OINT 28.35 GM TUBE PR PRN (16:49)
[2021-10-28] MEDS ORDERED: Witch Hazel PAD JAR TOPICAL PRN (16:49)
[2021-10-28 17:41] LABS: Urine Appearance Clear; Urine Bilirubin Negative (Negative); Urine Blood Negative (Negative); Urine Color Yellow; Urine Glucose Negative (Negative); Urine Ketones Negative (Negative); Urine Nitrite Negative (Negative); Urine Protein 1+(30 mg/dL) (Negative); Urine Specific Gravity 1.012 (1.002-1.030); Urine Urobilinogen Negative (Negative)
[2021-10-28 18:00] LABS: Urine Bacteria Absent (Absent); Urine Red Blood Cell Absent (Absent); Urine Squamous Epithelial Cell Present (Absent); Urine White Blood Cell Absent (Absent)
[2021-10-29 06:55] LABS: Hematocrit 27 % (35-47); Hemoglobin 9.4 g/dL (12.0-16.0); Mean Corpuscular HGB Conc 34 g/dL (31-36); Mean Corpuscular Hemoglobin 31 pg (27-31); Mean Corpuscular Volume 89 fL (80-97); Mean Platelet Volume 8.6 fL (7.4-10.4); Platelet Count 158 10^3/uL (150-450); Red Blood Count 3.05 10^6 /uL (3.70-4.87); Red Cell Distribution Width 13 % (10-15); White Blood Count 9.6 10^3/uL (3.5-10.8)
[2021-10-29] MEDS ORDERED: Varicella Virus Vaccine Live 0.5 ML VIAL SUBCUT ONE (10:08)
[2021-10-29 12:21] LABS: ABS Lymphocytes 1.5 10^3/ul (1.0-4.8); ABS Monocytes 0.4 10^3/ul (0-0.8); ABS Neutrophils 7.6 10^3/ul (1.5-7.7); Eosinophil % 0.5 %; Lymphocyte % 15.8 %
[2021-10-29 17:18] VITALS: BP 123/67
== END 2021-10-29 19:58 | disposition home or self-care (01) | DRG 560 ==
LOC: MCHOBOUT 08:08 → MCHOB 09:23
PROVIDERS: ADMIT Midwife; ATTEND Midwife

== ENCOUNTER 2023-03-13 10:00 | Inpatient (IN) ==
[2023-03-13] MEDS ORDERED: Lidocaine 1% VIAL 10 MG/ML 30 ML VIAL INJ PRN (10:54)
[2023-03-13] MEDS ORDERED: Promethazine INJ(RESTRICTED) 25 MG/ML 1 ml VIAL IV PRN (10:54)
[2023-03-13] MEDS: Lactated Ringers 1000 ml BAG 1,000 ML IV ONE (11:24)
[2023-03-13 11:25] LABS: ABS Monocytes 0.3 10^3/uL (0.0-0.9); ABS Neutrophils 6.4 10^3/uL (1.5-7.6); Eosinophil % 0.5 %; Hematocrit 30.9 % (35-45); Hemoglobin 10.9 g/dL (11.5-14.3); Lymphocyte % 12.6 %; Mean Corpuscular Hemoglobin 30.2 pg (27-33); Mean Corpuscular Hgb Conc 35.2 g/dL (31-36); Mean Platelet Volume 9.5 fL (7.5-11.2); Platelet Count 154 10^3/uL (150-450); Red Cell Distribution Width 13.9 % (12-17); White Blood Count 7.7 10^3/uL (3.8-11.8)
[2023-03-13] MEDS: Oxytocin in LR 20,000 MILLI.UNIT/1,000 ML BAG IV SCH (11:32)
[2023-03-13 11:58] LABS: Urine Benzodiazepine Screen None Detected (None Detect); Urine Opiates Screen None Detected (None Detect)
[2023-03-13] MEDS: Penicillin G Potassium IV 5,000,000 UNITS in NS 0.9% 100 ml BAG 100 ML IVPB ONE (12:18)
[2023-03-13] MEDS: OBEPIDURAL (200 ML) 200 ML EPIDURAL ONE (13:55)
[2023-03-13 15:16] LABS: Urine Appearance Clear; Urine Bilirubin Negative (Negative); Urine Blood Negative (Negative); Urine Color Yellow; Urine Glucose Negative (Negative); Urine Ketones Negative (Negative); Urine Nitrite Negative (Negative); Urine Protein Negative (Negative); Urine Specific Gravity 1.015 (1.002-1.030); Urine Urobilinogen Negative (Negative)
[2023-03-13] MEDS: Lactated Ringers 1000 ml BAG 1,000 ML IV SCH (15:30)
[2023-03-13] MEDS ORDERED: Phenylephrine 40 mcg/mL 10mL (400mcg) SYRINGE IV PUSH PRN ×2 (15:38)
[2023-03-13] MEDS ORDERED: Sodium Citrate/Citric Acid LIQ 15 ML UDC PO PRN (15:38)
[2023-03-13] MEDS: Penicillin G Potassium IV 3,000,000 UNITS in NS 0.9% 100 ml BAG 100 ML IVPB SCH (16:15)
[2023-03-13] MEDS ORDERED: Dibucaine 1% OINT 28.35 GM TUBE PR PRN (19:00)
[2023-03-13] MEDS ORDERED: Witch Hazel PAD JAR TOPICAL PRN (19:00)
[2023-03-13] MEDS ORDERED: Lactated Ringers 1000 ml BAG 1,000 ML IV SCH (19:00)
[2023-03-14] MEDS: Lidocaine 1.5% EPI 1:200,000 30 ML SDV ONE (06:21)
[2023-03-14] MEDS: Buffered Lidocaine 1% SYRIN 1 ml INTRADERM ONE (06:21)
[2023-03-14] MEDS: OBEPIDURAL (200 ML) 200 ML EPIDURAL SCH (06:22)
[2023-03-14] MEDS: Lactated Ringers 1000 ml BAG 1,000 ML IV SCH (06:25)
[2023-03-14] MEDS: Lactated Ringers 1000 ml BAG 1,000 ML IV ONE (06:25)
[2023-03-14 07:57] LABS: Hematocrit 27.5 % (35-45); Hemoglobin 9.7 g/dL (11.5-14.3); Mean Corpuscular Hemoglobin 30.3 pg (27-33); Mean Corpuscular Hgb Conc 35.3 g/dL (31-36); Mean Corpuscular Volume 85.8 fL (80-97); Mean Platelet Volume 9.4 fL (7.5-11.2); Platelet Count 127 10^3/uL (150-450); Red Cell Distribution Width 13.8 % (12-17); White Blood Count 5.8 10^3/uL (3.8-11.8)
[2023-03-14 08:52] LABS: ABS Lymphocytes 0.7 10^3/uL (1.0-4.8); ABS Monocytes 0.4 10^3/uL (0.0-0.9); ABS Neutrophils 4.7 10^3/uL (1.5-7.6); ABS Nucleated RBC 0.01 10^3/ul; Eosinophil % 0.5 %; Lymphocyte % 12.2 %; Nucleated Red Blood Cells % 0.1 %/100WBC (0.0-0.8)
[2023-03-15 07:52] VITALS: BP 105/68
== END 2023-03-15 17:45 | disposition home or self-care (01) | DRG 560 ==
LOC: MCHOBOUT 10:00 → MCHOB 10:40
PROVIDERS: ADMIT Registered Nurse; ATTEND Registered Nurse